=== PATIENT | male | born 1965 | race Caucasian/White ===

== ENCOUNTER → 2018-05-13 07:54 | Outpatient (CLI) | payer OTHER, SELFPAY ==
[2018-05-13 09:22] LABS: Hemoglobin A1C% w Est Avg Glu 8.5 % (4.0-6.0)
[2018-05-13 09:49] LABS: Creatinine Urine Random 77.9 mg/dL; Protein (Total) Urine Random 134 mg/dL (0-12); Protein Creatinine Ratio Urine 1.72 GRAM/24H
[2018-05-13 09:50] LABS: BUN Creatinine Ratio 19.5 (6-22); Blood Urea Nitrogen 41 mg/dL (9-20); Calcium 8.7 mg/dL (8.4-10.2); Carbon Dioxide 27 mmol/L (22-32); Chloride 106 mmol/L (98-107); Estimated Glomerular Filt Rate 33.5 mL/min (>60); Glucose 165 mg/dL (70-100); HEMOLYSIS < 15 (0-50); Potassium 4.7 mmol/L (3.4-5.1); Sodium 142 mmol/L (137-145)
[2018-05-14 14:52] LABS: Parathyroid Hormone Int 120 pg/mL (14-64)
== END ==
PROVIDERS: PCP Internal Medicine; Visit Provider Student in an Organized Health Care Education/Training Program
DX: N05.9 Unspecified nephritic syndrome with unspecified morphologic changes (principal); E11.9 Type 2 diabetes mellitus without complications; N25.81 Secondary hyperparathyroidism of renal origin; R80.9 Proteinuria, unspecified
CPT/HCPCS: 36415; 80048; 82570; 83036; 83970; 84156

== ENCOUNTER → 2018-10-22 12:33 | Outpatient (CLI) | payer OTHER, SELFPAY ==
[2018-10-22 12:57] LABS: Hematocrit 41.1 % (41-53); Hemoglobin 13.5 g/dL (13.5-17.5)
[2018-10-22 14:02] LABS: BUN Creatinine Ratio 25.9 (6-22); Blood Urea Nitrogen 57 mg/dL (9-20); Calcium 8.5 mg/dL (8.4-10.2); Carbon Dioxide 22 mmol/L (22-32); Chloride 105 mmol/L (98-107); Estimated Glomerular Filt Rate 31.7 mL/min (>60); Glucose 200 mg/dL (70-100); HEMOLYSIS < 15 (0-50); Potassium 5.2 mmol/L (3.4-5.1); Sodium 137 mmol/L (137-145)
[2018-10-22 15:24] LABS: Creatinine Urine Random 76.3 mg/dL; Protein (Total) Urine Random 123 mg/dL (0-12); Protein Creatinine Ratio Urine 1.61 GRAM/24H
[2018-10-26 15:00] LABS: Parathyroid Hormone Int 151 pg/mL (14-64)
== END ==
PROVIDERS: Family Provider Internal Medicine; PCP Internal Medicine; Visit Provider Student in an Organized Health Care Education/Training Program
DX: N05.9 Unspecified nephritic syndrome with unspecified morphologic changes (principal); D64.9 Anemia, unspecified; N25.81 Secondary hyperparathyroidism of renal origin; R80.9 Proteinuria, unspecified
CPT/HCPCS: 36415; 80048; 82570; 83970; 84156; 85014; 85018

== ENCOUNTER → 2018-11-09 12:09 | Outpatient (CLI) | payer OTHER, SELFPAY ==
[2018-11-09 13:11] LABS: HEMOLYSIS < 15 (0-50); Potassium 4.6 mmol/L (3.4-5.1)
== END ==
PROVIDERS: Family Provider Internal Medicine; PCP Internal Medicine; Visit Provider Student in an Organized Health Care Education/Training Program
DX: E87.5 Hyperkalemia (principal)
CPT/HCPCS: 36415; 84132

== ENCOUNTER → 2018-12-04 11:08 | Outpatient (CLI) | payer OTHER, SELFPAY | PROVIDERS: Family Provider Internal Medicine; PCP Internal Medicine; Visit Provider Student in an Organized Health Care Education/Training Program | DX: E87.5 Hyperkalemia (principal) ==

== ENCOUNTER → 2019-02-05 08:53 | Outpatient (CLI) | payer OTHER, SELFPAY ==
[2019-02-05 10:25] LABS: BUN Creatinine Ratio 22.4 (6-22); Blood Urea Nitrogen 47 mg/dL (9-20); Calcium 9.1 mg/dL (8.4-10.2); Carbon Dioxide 25 mmol/L (22-32); Chloride 104 mmol/L (98-107); Estimated Glomerular Filt Rate 33.3 mL/min (>60); Glucose 187 mg/dL (70-100); HEMOLYSIS < 15 (0-50); Sodium 136 mmol/L (137-145)
[2019-02-05 10:26] LABS: Creatinine Urine Random 64.6 mg/dL; Potassium 5.4 mmol/L (3.4-5.1); Protein (Total) Urine Random 110 mg/dL (0-12)
== END ==
PROVIDERS: PCP Internal Medicine; Visit Provider Student in an Organized Health Care Education/Training Program
DX: R80.9 Proteinuria, unspecified (principal); N05.9 Unspecified nephritic syndrome with unspecified morphologic changes
CPT/HCPCS: 36415; 80048; 82570; 84156

== ENCOUNTER → 2019-02-09 11:20 | Outpatient (CLI) | payer OTHER, SELFPAY ==
[2019-02-09 12:21] LABS: HEMOLYSIS < 15 (0-50)
[2019-02-09 12:29] LABS: Potassium 5.5 mmol/L (3.4-5.1)
== END ==
PROVIDERS: PCP Internal Medicine; Visit Provider Student in an Organized Health Care Education/Training Program
DX: E87.5 Hyperkalemia (principal)
CPT/HCPCS: 36415; 84132

== ENCOUNTER → 2019-06-18 11:24 | Outpatient (CLI) | payer OTHER, SELFPAY ==
[2019-06-18 12:18] LABS: Hematocrit 41.4 % (41-53); Hemoglobin 13.5 g/dL (13.5-17.5)
[2019-06-18 12:31] LABS: BUN Creatinine Ratio 23.2 (6-22); Blood Urea Nitrogen 44 mg/dL (9-20); Calcium 8.9 mg/dL (8.4-10.2); Carbon Dioxide 25 mmol/L (22-32); Chloride 105 mmol/L (98-107); Estimated Glomerular Filt Rate 37.4 mL/min (>60); Glucose 169 mg/dL (70-100); HEMOLYSIS < 15 (0-50); Potassium 4.7 mmol/L (3.4-5.1); Sodium 141 mmol/L (137-145)
[2019-06-18 12:37] LABS: Creatinine Urine Random 72.2 mg/dL; Protein (Total) Urine Random 194 mg/dL (0-12); Protein Creatinine Ratio Urine 2.68 GRAM/24H
[2019-06-21 14:22] LABS: Parathyroid Hormone Int 81 pg/mL (14-64)
== END ==
PROVIDERS: Family Provider Internal Medicine; PCP Internal Medicine; Visit Provider Student in an Organized Health Care Education/Training Program
DX: N05.9 Unspecified nephritic syndrome with unspecified morphologic changes (principal); D64.9 Anemia, unspecified; N25.81 Secondary hyperparathyroidism of renal origin; R80.9 Proteinuria, unspecified
CPT/HCPCS: 36415; 80048; 82570; 83970; 84156; 85014; 85018

== ENCOUNTER → 2019-10-24 19:31 | Outpatient (ROUT) | payer OTHER, SELFPAY | PROVIDERS: Family Provider Internal Medicine; PCP Internal Medicine; Visit Provider Dermatology | DX: N05.9 Unspecified nephritic syndrome with unspecified morphologic changes (principal); D64.9 Anemia, unspecified; N25.81 Secondary hyperparathyroidism of renal origin; R80.9 Proteinuria, unspecified | CPT/HCPCS: 87070; 87075; 87077; 87186; 87205 ==

== ENCOUNTER → 2019-11-26 08:38 | Outpatient (CLI) | payer OTHER, SELFPAY ==
[2019-11-26 09:07] LABS: Hematocrit 43.9 % (41-53); Hemoglobin 14.4 g/dL (13.5-17.5)
[2019-11-26 09:36] LABS: Creatinine Urine Random 61.9 mg/dL; Protein (Total) Urine Random 144 mg/dL (0-12); Protein Creatinine Ratio Urine 2.32 GRAM/24H
[2019-11-26 09:44] LABS: BUN Creatinine Ratio 21.9 (6-22); Blood Urea Nitrogen 51 mg/dL (9-20); Calcium 9.5 mg/dL (8.4-10.2); Carbon Dioxide 26 mmol/L (22-32); Chloride 105 mmol/L (98-107); Cholesterol 247 mg/dL (140-199); Estimated Glomerular Filt Rate 29.4 mL/min (>60); Glucose 147 mg/dL (70-100); HDL Cholesterol 52 mg/dL (40-60); HEMOLYSIS < 15 (0-50); LDL Cholesterol Calculated 179 mg/dL (<100); Sodium 138 mmol/L (137-145); Triglycerides 81 mg/dL (35-150)
[2019-11-26 09:46] LABS: Potassium 5.4 mmol/L (3.4-5.1)
[2019-11-29 08:35] LABS: Parathyroid Hormone Int 86 pg/mL (15-65)
== END ==
PROVIDERS: Family Provider Internal Medicine; PCP Internal Medicine; Referring Provider Student in an Organized Health Care Education/Training Program; Visit Provider Student in an Organized Health Care Education/Training Program
DX: D64.9 Anemia, unspecified (principal); N25.81 Secondary hyperparathyroidism of renal origin; R80.9 Proteinuria, unspecified
CPT/HCPCS: 36415; 80048; 80061; 82570; 83970; 84156; 85014; 85018

== ENCOUNTER → 2020-01-02 07:52 | Outpatient (CLI) | payer OTHER, SELFPAY ==
[2020-01-02 10:02] LABS: Blood Urea Nitrogen 39 mg/dL (9-20); Calcium 9.1 mg/dL (8.4-10.2); Carbon Dioxide 23 mmol/L (22-32); Chloride 107 mmol/L (98-107); Estimated Glomerular Filt Rate 27.9 mL/min (>60); Glucose 168 mg/dL (70-100); HEMOLYSIS < 15 (0-50); Sodium 136 mmol/L (137-145)
[2020-01-02 10:12] LABS: Potassium 5.4 mmol/L (3.4-5.1)
== END ==
PROVIDERS: Family Provider Internal Medicine; PCP Internal Medicine; Referring Provider Student in an Organized Health Care Education/Training Program; Visit Provider Student in an Organized Health Care Education/Training Program
DX: N05.9 Unspecified nephritic syndrome with unspecified morphologic changes (principal)
CPT/HCPCS: 36415; 80048

== ENCOUNTER → 2020-01-21 12:22 | Outpatient (CLI) | payer OTHER, SELFPAY ==
[2020-01-21 12:59] LABS: BUN Creatinine Ratio 24.8 (6-22); Blood Urea Nitrogen 66 mg/dL (9-20); Calcium 9.1 mg/dL (8.4-10.2); Carbon Dioxide 25 mmol/L (22-32); Chloride 105 mmol/L (98-107); Estimated Glomerular Filt Rate 25.3 mL/min (>60); Glucose 134 mg/dL (70-100); HEMOLYSIS < 15 (0-50); Potassium 5.1 mmol/L (3.4-5.1); Sodium 137 mmol/L (137-145)
[2020-01-21 13:20] LABS: Creatinine Urine Random 99.1 mg/dL; Protein (Total) Urine Random 95 mg/dL (0-12); Protein Creatinine Ratio Urine 0.95 GRAM/24H
== END ==
PROVIDERS: Family Provider Internal Medicine; PCP Internal Medicine; Referring Provider Student in an Organized Health Care Education/Training Program; Visit Provider Student in an Organized Health Care Education/Training Program
DX: N05.9 Unspecified nephritic syndrome with unspecified morphologic changes (principal); R80.9 Proteinuria, unspecified
CPT/HCPCS: 36415; 80048; 82570; 84156

== ENCOUNTER → 2020-07-09 11:51 | Outpatient (CLI) | payer OTHER, SELFPAY ==
[2020-07-09 12:26] LABS: Hematocrit 42.3 % (41-53); Hemoglobin 13.7 g/dL (13.5-17.5)
[2020-07-09 12:52] LABS: BUN Creatinine Ratio 16.6 (6-22); Blood Urea Nitrogen 36 mg/dL (9-20); Calcium 8.4 mg/dL (8.4-10.2); Carbon Dioxide 27 mmol/L (22-32); Chloride 105 mmol/L (98-107); Glucose 173 mg/dL (70-100); HEMOLYSIS < 15 (0-50); Potassium 4.7 mmol/L (3.4-5.1); Sodium 136 mmol/L (137-145)
[2020-07-09 13:46] LABS: Creatinine Urine Random 19.4 mg/dL; Protein (Total) Urine Random 38 mg/dL (0-12); Protein Creatinine Ratio Urine 1.95 GRAM/24H
[2020-07-10 07:29] LABS: Parathyroid Hormone Int 110 pg/mL (15-65)
== END ==
PROVIDERS: Family Provider Internal Medicine; PCP Internal Medicine; Referring Provider Student in an Organized Health Care Education/Training Program; Visit Provider Student in an Organized Health Care Education/Training Program
DX: N05.9 Unspecified nephritic syndrome with unspecified morphologic changes (principal); D64.9 Anemia, unspecified; N25.81 Secondary hyperparathyroidism of renal origin; R80.9 Proteinuria, unspecified
CPT/HCPCS: 36415; 80048; 82570; 83970; 84156; 85014; 85018

== ENCOUNTER → 2020-08-02 10:34 | Outpatient (CLI) | payer OTHER, SELFPAY ==
[2020-08-02 11:21] LABS: COVID19 -Nasal RAPID Negative (Negative)
--- NOTE | 2020-08-03 18:36 | DI.NM.S_ITS ---
DATE OF SERVICE: 08/02/2020 PROCEDURE PERFORMED: Exercise treadmill stress and rest myocardial perfusion imaging with gating to assess ejection fraction and regional wall motion. ORDERING PROVIDER: Dr. Jorge Sands. INDICATIONS: The patient is a 54-year-old obese diabetic male with chest pain. EXERCISE TREADMILL TESTING: The patient was able to exercise for a total of 6 minutes 19 seconds on a standard Alireza protocol suggesting moderately impaired exercise capacity with an LATHA of +33%. He had a normal heart rate and blood pressure response, achieving a maximum heart rate of 156 BPM (93% of his predicted maximum). He had no chest discomfort but had limiting dyspnea. His resting ECG is normal. With exercise, there is significant motion artifact, but 1-2 mm of flat to upsloping ST depression in the inferolateral leads, that becomes predominantly upsloping early in recovery and is nonspecific for ischemia. There are occasional PACs, but no concerning arrhythmias. At 5 minutes 20 seconds of exercise, at a heart rate of 147 BPM, 25.4 millicuries of technetium-99m Myoview was injected and the patient was imaged 20 minutes later using a gated SPECT acquisition protocol. He returned the following day and was reinjected with an additional 25.4 millicuries of technetium-99m Myoview and was imaged 30 minutes later, again using a gated SPECT acquisition protocol. FINDINGS: 1. Raw data: There is marginal image quality with considerable motion artifact noted on the post-stress images that appears to be fairly well corrected using a motion correction algorithm, although this itself can introduce artifact . The lung/heart ratio was normal at 0.28 with a borderline elevated TID ratio of 1.21. 2. Quantitated gated SPECT: Post-stress ejection fraction is estimated at 66% without any obvious focal wall motion abnormality, although image quality is quite poor, particularly at the apex. Resting ejection fraction is estimated at 71% with a normal end-diastolic volume of 95 mL. 3. The post-stress supine images shows a moderate to severe perfusion defect in the mid to distal septum, extending into the distal anterior wall, apex and distal inferior wall. The prone images are of suboptimal quality, but suggest a persistent perfusion defect in this area, concerning for true perfusion defect. The resting images are of much better quality and show resolution of this distal anteroapical and distal inferior wall perfusion defect. IMPRESSION: 1. Probable abnormal myocardial perfusion study. 2. Moderate-sized, reversible perfusion defect involving the mid to distal septum, distal anterior wall, apex, and distal inferior wall concerning for myocardial ischemia, although image quality is somewhat suboptimal with considerable motion artifact noted, reducing the specificity. 3. Normal left ventricular systolic function without any obvious focal wall motion abnormality, although image quality again is somewhat suboptimal. 4. Moderate-severely reduced exercise capacity without angina, but limiting dyspnea with some flat upsloping ST depression that is nonspecific for ischemia. 5. Compared to the previous myocardial perfusion study of 08/20/2012, the patient had an LATHA of approximately +10% previously, suggesting worsening exercise capacity. His ejection fraction appears to be similar. His perfusion imaging was normal previously, suggesting that this anterior apical perfusion defect is new compared to the previous exam. Claudio Man - Keshawn/lexis doc#: [id number]/job#: [id number] dd: 08/03/2020 12:57:00 dt: 08/03/2020 17:45:00 DICTATING MD/COPIES TO: Camden Russell MD; Jorge Sands MD COPIES MNE: SAAD;
== END ==
PROVIDERS: Family Provider Internal Medicine; PCP Internal Medicine; Referring Provider Internal Medicine; Visit Provider Internal Medicine
DX: R07.9 Chest pain, unspecified (principal); E66.9 Obesity, unspecified; E11.9 Type 2 diabetes mellitus without complications; I10 Essential (primary) hypertension
CPT/HCPCS: 78452; 87635; 93017; A9502

== ENCOUNTER → 2020-08-21 08:44 | Outpatient (CLI) | payer OTHER, SELFPAY ==
[2020-08-21 09:35] LABS: BUN Creatinine Ratio 16.9 (6-22); Blood Urea Nitrogen 34 mg/dL (9-20); Calcium 9.3 mg/dL (8.4-10.2); Carbon Dioxide 27 mmol/L (22-32); Chloride 104 mmol/L (98-107); Estimated Glomerular Filt Rate 34.9 mL/min (>60); Glucose 160 mg/dL (70-100); HEMOLYSIS < 15 (0-50); Sodium 135 mmol/L (137-145)
[2020-08-21 14:42] LABS: Creatinine Urine Random 46.1 mg/dL; Protein (Total) Urine Random 59 mg/dL (0-12); Protein Creatinine Ratio Urine 1.27 GRAM/24H
== END ==
PROVIDERS: Family Provider Internal Medicine; PCP Internal Medicine; Referring Provider Student in an Organized Health Care Education/Training Program; Visit Provider Student in an Organized Health Care Education/Training Program
DX: R80.9 Proteinuria, unspecified (principal); N05.9 Unspecified nephritic syndrome with unspecified morphologic changes
CPT/HCPCS: 36415; 80048; 82570; 84156

== ENCOUNTER → 2020-11-27 16:13 | Outpatient (CLI) | payer OTHER, SELFPAY ==
--- NOTE | 2020-11-27 | DI.ECHO.S_ITS ---
[facility]---------+ [facility] +---------+ : : [address] : : : : [id number] : : : : Phone: [phone]+ Echocardiogram Report + + :Name: TARA DRAPER Study Date: 11/27/2020 Height: 72 in : :[facility] ReadingLocation: Weight: 289 lb : : Gender: Male BSA: 2.5 m2 : :: 1965 Age: 55 yrs BP: 152/86 mmHg: :Reason For Study: ANGINA PECTORIS : :Ordering Physician: NEGIN, : :WENDY Performed By: Nishi Shea : :Referring: WENDY RUIZ : + + Interpretation Summary 1) Normal left ventricular thickness, size, wall motion, and systolic function (EF 60-65%). 2) Normal right ventricular size and function. 3) No significant valvular abnormalities. 4) Hypertension present during the study (BP 152/86mmHg). 5) No prior Echo available for comparison. Procedure: A two-dimensional transthoracic echocardiogram with color flow and Doppler was performed. The study quality was technically adequate. There is no prior echocardiogram noted for this patient. A contrast injection of Definity was performed to improve assessment of LV function. The patient was in sinus rhythm with heart rates between 75-84 bpm during the exam. Left Ventricle: The left ventricle is normal in size and wall thickness. The ejection fraction is estimated to be 65-70%. Left ventricular systolic function appears normal without focal wall motion abnormalities. Diastolic parameters suggest probable normal left ventricular diastolic function and normal filling pressures. Right Ventricle: The right ventricle is normal in size and function. Atria: The left atrial size is normal. Right atrial size is normal. There is no Doppler evidence for an interatrial shunt. Mitral Valve: There is mild mitral annular calcification. The mitral valve leaflets appear mildly thickened, but open well. There is no mitral regurgitation noted. Aortic Valve: The aortic valve is trileaflet. The aortic valve opens well. There is no aortic valve stenosis. No aortic regurgitation is present. Tricuspid Valve: The tricuspid valve is normal in structure and function. There is trace tricuspid regurgitation. Pulmonary artery pressures cannot be estimated because of the lack of a measurable TR jet velocity but the IVC suggests a CVP of around 3 mmHg. Pulmonic Valve: The pulmonic valve leaflets are thin and pliable; valve motion is normal. There is no pulmonic valvular regurgitation. Great Vessels: The aortic root is normal size. The dimensions of the ascending aorta are normal. The IVC is of normal diameter and collapses greater than 50% with a sniff. This suggests a low right atrial pressure of 3 mm Hg. Pericardium/ Pleura There is no pericardial effusion. There is no pleural effusion. MMode/2D Measurements & Calculations LVIDd: 4.6 cm LVOT diam: 2.2 cm LVIDs: 3.0 cm Ao root diam: 3.2 cm FS: 34.6 % asc Aorta Diam: 3.3 cm IVSd: 1.4 cm Ao Arch Diam (Prox Trans): 3.0 cm LVPWd: 0.94 cm LV sow. diameter/BSA (cm/m^2): 1.8 LV sys. diameter/BSA (cm/m^2): 1.2 LA A2 area: 19.7 cm2 RA long axis: 4.8 cm LA A4 area: 19.6 cm2 RA area: 13.7 cm2 LA length (vol): 5.5 cm RA vol: 33.4 ml LA vol: 59.4 ml RA : 13.4 ml/m2 LA vol index: 23.8 ml/m2 IVC diam: 1.3 cm RVD1 (basal): 2.8 cm TAPSE: 2.0 cm Doppler Measurements & Calculations Ao V2 max: 149.3 cm/sec LVOT Max Miguel: 85.0 cm/sec Ao V2 mean: 110.6 cm/sec LV V1 max P.9 mmHg Ao max P.9 mmHg LV V1 VTI: 18.3 cm Ao mean P.4 mmHg VIDHI(I,D): 2.5 cm2 Ao V2 VTI: 27.8 cm VIDHI(V,D): 2.2 cm2 sev ratio: 0.66 VIDHI indexed to BSA (cm^2/m^2): 1.0 MV E max miguel: 55.1 cm/sec PA V2 max: 84.9 cm/sec Med Peak E' Miguel: 9.2 cm/sec PA V2 mean: 58.3 cm/sec E/E' med: 6.0 PA mean P.5 mmHg Lat Peak E' Miguel: 6.8 cm/sec PA pr(Accel): 37.9 mmHg E/E' lat: 8.1 E/e' average: 7.0 MV dec time: 0.27 sec SVLVOT): 69.4 ml Reading Physician:05:46 PM
== END ==
PROVIDERS: Family Provider Internal Medicine; PCP Internal Medicine; Referring Provider Internal Medicine Cardiovascular Disease; Visit Provider Internal Medicine Cardiovascular Disease
DX: I20.8 Other forms of angina pectoris (principal); R94.39 Abnormal result of other cardiovascular function study
CPT/HCPCS: 93306; Q9957

== ENCOUNTER → 2020-12-04 17:38 | Outpatient (CLI) | payer OTHER, SELFPAY ==
[2020-12-04 18:18] LABS: BUN Creatinine Ratio 21.5 (6-22); Blood Urea Nitrogen 41 mg/dL (9-20); Carbon Dioxide 24 mmol/L (22-32); Chloride 106 mmol/L (98-107); Estimated Glomerular Filt Rate 36.9 mL/min (>60); Glucose 82 mg/dL (70-100); HEMOLYSIS < 15 (0-50); Potassium 4.6 mmol/L (3.4-5.1); Sodium 139 mmol/L (137-145)
[2020-12-04 18:36] LABS: Creatinine Urine Random 55.5 mg/dL; Protein (Total) Urine Random 55 mg/dL (0-12); Protein Creatinine Ratio Urine 0.99 GRAM/24H
[2020-12-05 07:29] LABS: Parathyroid Hormone Int 131 pg/mL (15-65)
== END ==
PROVIDERS: Family Provider Internal Medicine; PCP Internal Medicine; Referring Provider Student in an Organized Health Care Education/Training Program; Visit Provider Student in an Organized Health Care Education/Training Program
DX: N05.9 Unspecified nephritic syndrome with unspecified morphologic changes (principal); N25.81 Secondary hyperparathyroidism of renal origin; R80.9 Proteinuria, unspecified
CPT/HCPCS: 36415; 80048; 82570; 83970; 84156

== ENCOUNTER → 2021-01-14 12:48 | Outpatient (CLI) | payer OTHER, SELFPAY ==
[2021-01-14 13:28] LABS: Add Manual Diff / Slide Review NO; Basophils Absolute Auto 0 /uL (0-100); Basophils Percent Auto 0.7 % (0-2); Eosinophils Absolute Auto 200 /uL (0-450); Eosinophils Percent Auto 2.6 % (2-4); Hematocrit 40.5 % (41-53); Hemoglobin 13.5 g/dL (13.5-17.5); Lymphocytes Absolute Auto 2200 /uL (1100-4500); Lymphocytes Percent Auto 36.1 % (25-40); Mean Corpuscular HGB Conc 33.3 % (30-36); Mean Corpuscular Hemoglobin 28.6 PG (26-34); Mean Corpuscular Volume 86.1 fL (80-100); Monocytes Absolute Auto 500 /uL (0-900); Monocytes Percent Auto 8.3 % (3-14); Neutrophils Absolute Auto 3200 /uL (1500-7000); Neutrophils Percent Auto 52.3 % (50-75); Platelet Count 196 X10^3/uL (150-400); White Blood Cell Count 6.2 X10^3/uL (4.5-11.0)
[2021-01-14 14:17] LABS: BUN Creatinine Ratio 15.6 (6-22); Blood Urea Nitrogen 31 mg/dL (9-20); Calcium 9.5 mg/dL (8.4-10.2); Carbon Dioxide 25 mmol/L (22-32); Chloride 105 mmol/L (98-107); Cholesterol 194 mg/dL (140-199); Estimated Glomerular Filt Rate 35.2 mL/min (>60); Glucose 161 mg/dL (70-100); HDL Cholesterol 49 mg/dL (40-60); HEMOLYSIS < 15 (0-50); LDL Cholesterol Calculated 115 mg/dL (<100); Potassium 4.8 mmol/L (3.4-5.1); Sodium 137 mmol/L (137-145); Triglycerides 151 mg/dL (35-150)
== END ==
PROVIDERS: Family Provider Internal Medicine; PCP Internal Medicine; Referring Provider Internal Medicine Cardiovascular Disease; Visit Provider Internal Medicine Cardiovascular Disease
DX: I10 Essential (primary) hypertension (principal); E78.5 Hyperlipidemia, unspecified
CPT/HCPCS: 36415; 80048; 80061; 85025

== ENCOUNTER → 2021-04-16 08:31 | Outpatient (CLI) | payer OTHER, SELFPAY ==
[2021-04-16 09:19] LABS: Hematocrit 39.5 % (41-53); Hemoglobin 13.1 g/dL (13.5-17.5)
[2021-04-16 09:30] LABS: Blood Urea Nitrogen 24 mg/dL (9-20); Calcium 8.7 mg/dL (8.4-10.2); Carbon Dioxide 24 mmol/L (22-32); Chloride 111 mmol/L (98-107); Cholesterol 151 mg/dL (140-199); Estimated Glomerular Filt Rate 38.3 mL/min (>60); Glucose 165 mg/dL (70-100); HDL Cholesterol 47 mg/dL (40-60); HEMOLYSIS < 15 (0-50); LDL Cholesterol Calculated 90 mg/dL (<100); Potassium 4.2 mmol/L (3.4-5.1); Sodium 141 mmol/L (137-145); Triglycerides 72 mg/dL (35-150)
[2021-04-16 09:59] LABS: Creatinine Urine Random 123.8 mg/dL
[2021-04-16 10:06] LABS: Protein (Total) Urine Random 110 mg/dL (0-12); Protein Creatinine Ratio Urine 0.88 GRAM/24H
[2021-04-17 07:44] LABS: Parathyroid Hormone Int 119 pg/mL (15-65)
== END ==
PROVIDERS: Family Provider Internal Medicine; PCP Internal Medicine; Referring Provider Student in an Organized Health Care Education/Training Program; Visit Provider Student in an Organized Health Care Education/Training Program
DX: D64.9 Anemia, unspecified (principal); N05.9 Unspecified nephritic syndrome with unspecified morphologic changes; E78.5 Hyperlipidemia, unspecified; N25.81 Secondary hyperparathyroidism of renal origin; R80.9 Proteinuria, unspecified
CPT/HCPCS: 36415; 80048; 80061; 82570; 83970; 84156; 85014; 85018

== ENCOUNTER → 2021-11-11 07:10 | Outpatient (CLI) | payer OTHER, SELFPAY ==
[2021-11-11 08:26] LABS: Hematocrit 42.3 % (41-53)
[2021-11-11 08:34] LABS: BUN Creatinine Ratio 17.6 (6-22); Blood Urea Nitrogen 32 mg/dL (9-20); Calcium 9.1 mg/dL (8.4-10.2); Carbon Dioxide 28 mmol/L (22-32); Chloride 106 mmol/L (98-107); Estimated Glomerular Filt Rate 38.9 mL/min (>60); Glucose 177 mg/dL (70-100); HEMOLYSIS < 15 (0-50); Potassium 4.5 mmol/L (3.4-5.1); Sodium 137 mmol/L (137-145)
[2021-11-11 09:10] LABS: Protein (Total) Urine Random 259 mg/dL (0-12); Protein Creatinine Ratio Urine 4.11 GRAM/24H
[2021-11-12 07:13] LABS: Parathyroid Hormone Int 74 pg/mL (15-65)
== END ==
PROVIDERS: Family Provider Internal Medicine; PCP Internal Medicine; Referring Provider Student in an Organized Health Care Education/Training Program; Visit Provider Student in an Organized Health Care Education/Training Program
DX: N05.9 Unspecified nephritic syndrome with unspecified morphologic changes (principal); D64.9 Anemia, unspecified; N25.81 Secondary hyperparathyroidism of renal origin; R80.9 Proteinuria, unspecified
CPT/HCPCS: 36415; 80048; 82570; 83970; 84156; 85014; 85018

== ENCOUNTER → 2022-02-11 07:11 | Outpatient (CLI) | payer OTHER, SELFPAY ==
[2022-02-11 08:15] LABS: Creatinine Urine Random 78.8 mg/dL; Protein (Total) Urine Random 159 mg/dL (0-12); Protein Creatinine Ratio Urine 2.01 GRAM/24H
[2022-02-11 08:33] LABS: BUN Creatinine Ratio 22.7 (6-22); Blood Urea Nitrogen 58 mg/dL (9-20); Calcium 8.9 mg/dL (8.4-10.2); Carbon Dioxide 22 mmol/L (22-32); Chloride 107 mmol/L (98-107); Estimated Glomerular Filt Rate 29 mL/min (>60); Glucose 191 mg/dL (70-100); HEMOLYSIS < 15 (0-50); Sodium 136 mmol/L (137-145)
[2022-02-11 08:36] LABS: Potassium 5.6 mmol/L (3.4-5.1)
== END ==
PROVIDERS: Family Provider Internal Medicine; PCP Internal Medicine; Referring Provider Student in an Organized Health Care Education/Training Program; Visit Provider Student in an Organized Health Care Education/Training Program
DX: N05.9 Unspecified nephritic syndrome with unspecified morphologic changes (principal); R80.9 Proteinuria, unspecified
CPT/HCPCS: 36415; 80048; 82570; 84156

== ENCOUNTER → 2022-04-16 16:28 | Outpatient (CLI) | payer OTHER, SELFPAY ==
[2022-04-16 18:12] LABS: Hematocrit 42.6 % (41-53); Hemoglobin 14.2 g/dL (13.5-17.5)
[2022-04-16 18:32] LABS: Blood Urea Nitrogen 43 mg/dL (9-20); Calcium 8.6 mg/dL (8.4-10.2); Carbon Dioxide 25 mmol/L (22-32); Chloride 105 mmol/L (98-107); Estimated Glomerular Filt Rate 33 mL/min (>60); Glucose 131 mg/dL (70-100); HEMOLYSIS 18 (0-50); Potassium 4.4 mmol/L (3.4-5.1); Sodium 137 mmol/L (137-145)
[2022-04-16 19:55] LABS: Creatinine Urine Random 51.5 mg/dL; Protein (Total) Urine Random 124 mg/dL (0-12)
[2022-04-17 07:39] LABS: Parathyroid Hormone Int 165 pg/mL (15-65)
== END ==
PROVIDERS: Family Provider Internal Medicine; PCP Internal Medicine; Referring Provider Student in an Organized Health Care Education/Training Program; Visit Provider Student in an Organized Health Care Education/Training Program
DX: N05.9 Unspecified nephritic syndrome with unspecified morphologic changes (principal); D64.9 Anemia, unspecified; N25.81 Secondary hyperparathyroidism of renal origin; R80.9 Proteinuria, unspecified
CPT/HCPCS: 36415; 80048; 82570; 83970; 84156; 85014; 85018

== ENCOUNTER → 2022-05-21 10:13 | Outpatient (CLI) | payer OTHER, SELFPAY ==
[2022-05-21 11:10] LABS: Hematocrit 42.4 % (41-53)
[2022-05-21 11:20] LABS: BUN Creatinine Ratio 15.4 (6-22); Blood Urea Nitrogen 37 mg/dL (9-20); Carbon Dioxide 24 mmol/L (22-32); Chloride 109 mmol/L (98-107); Estimated Glomerular Filt Rate 31 mL/min (>60); Glucose 227 mg/dL (70-100); HEMOLYSIS < 15 (0-50); Sodium 136 mmol/L (137-145)
[2022-05-21 11:33] LABS: Potassium 5.5 mmol/L (3.4-5.1)
[2022-05-21 11:33] LABS: Protein (Total) Urine Random 245 mg/dL (0-12); Protein Creatinine Ratio Urine 2.98 GRAM/24H
[2022-05-22 05:30] LABS: Parathyroid Hormone Int 118 pg/mL (15-65)
== END ==
PROVIDERS: Family Provider Internal Medicine; PCP Internal Medicine; Referring Provider Student in an Organized Health Care Education/Training Program; Visit Provider Student in an Organized Health Care Education/Training Program
DX: N05.9 Unspecified nephritic syndrome with unspecified morphologic changes (principal); D64.9 Anemia, unspecified; N25.81 Secondary hyperparathyroidism of renal origin; R80.9 Proteinuria, unspecified
CPT/HCPCS: 36415; 80048; 82570; 83970; 84156; 85014; 85018

== ENCOUNTER → 2022-07-04 08:30 | Outpatient (CLI) | payer OTHER, SELFPAY ==
[2022-07-04 09:29] LABS: Hematocrit 36.3 % (41-53); Hemoglobin 11.9 g/dL (13.5-17.5)
[2022-07-04 09:44] LABS: BUN Creatinine Ratio 16.3 (6-22); Blood Urea Nitrogen 39 mg/dL (9-20); Calcium 8.9 mg/dL (8.4-10.2); Carbon Dioxide 23 mmol/L (22-32); Chloride 105 mmol/L (98-107); Cholesterol 160 mg/dL (140-199); Estimated Glomerular Filt Rate 31 mL/min (>60); Glucose 186 mg/dL (70-100); HDL Cholesterol 40 mg/dL (40-60); HEMOLYSIS < 15 (0-50); LDL Cholesterol Calculated 106 mg/dL (<100); Potassium 4.5 mmol/L (3.4-5.1); Sodium 139 mmol/L (137-145); Triglycerides 68 mg/dL (35-150)
[2022-07-04 11:14] LABS: Creatinine Urine Random 97.5 mg/dL
[2022-07-04 11:36] LABS: Protein (Total) Urine Random 268 mg/dL (0-12); Protein Creatinine Ratio Urine 2.74 GRAM/24H
[2022-07-06 09:29] LABS: Parathyroid Hormone Int 80 pg/mL (15-65)
== END ==
PROVIDERS: Family Provider Internal Medicine; PCP Internal Medicine; Referring Provider Student in an Organized Health Care Education/Training Program; Visit Provider Student in an Organized Health Care Education/Training Program
DX: E78.5 Hyperlipidemia, unspecified (principal); N05.9 Unspecified nephritic syndrome with unspecified morphologic changes; D64.9 Anemia, unspecified; N25.81 Secondary hyperparathyroidism of renal origin; R80.9 Proteinuria, unspecified
CPT/HCPCS: 36415; 80048; 80061; 82570; 83970; 84156; 85014; 85018

== ENCOUNTER → 2022-08-11 11:08 | Outpatient (CLI) | payer OTHER, SELFPAY ==
[2022-08-11 12:35] LABS: Blood Urea Nitrogen 37 mg/dL (9-20); Calcium 8.8 mg/dL (8.4-10.2); Carbon Dioxide 28 mmol/L (22-32); Chloride 103 mmol/L (98-107); Estimated Glomerular Filt Rate 33 mL/min (>60); Glucose 118 mg/dL (70-100); HEMOLYSIS < 15 (0-50); Potassium 4.5 mmol/L (3.4-5.1); Sodium 138 mmol/L (137-145)
[2022-08-11 15:35] LABS: Creatinine Urine Random 53.7 mg/dL; Protein (Total) Urine Random 185 mg/dL (0-12); Protein Creatinine Ratio Urine 3.44 GRAM/24H
== END ==
PROVIDERS: Family Provider Internal Medicine; PCP Internal Medicine; Referring Provider Student in an Organized Health Care Education/Training Program; Visit Provider Student in an Organized Health Care Education/Training Program
DX: N05.9 Unspecified nephritic syndrome with unspecified morphologic changes (principal); R80.9 Proteinuria, unspecified
CPT/HCPCS: 36415; 80048; 82570; 84156

== ENCOUNTER → 2022-10-20 13:47 | Outpatient (CLI) | payer OTHER, SELFPAY ==
[2022-10-20 14:51] LABS: Add Manual Diff / Slide Review NO; Basophils Absolute Auto 0 /uL (0-100); Basophils Percent Auto 0.7 % (0-2); Eosinophils Absolute Auto 100 /uL (0-450); Eosinophils Percent Auto 2.2 % (2-4); Hematocrit 43.2 % (41-53); Hemoglobin 14.2 g/dL (13.5-17.5); Lymphocytes Absolute Auto 2200 /uL (1100-4500); Lymphocytes Percent Auto 34.5 % (25-40); Mean Corpuscular HGB Conc 32.9 % (30-36); Mean Corpuscular Hemoglobin 27.7 PG (26-34); Mean Corpuscular Volume 84.2 fL (80-100); Monocytes Absolute Auto 600 /uL (0-900); Monocytes Percent Auto 8.9 % (3-14); Neutrophils Absolute Auto 3500 /uL (1500-7000); Neutrophils Percent Auto 53.7 % (50-75); Platelet Count 185 X10^3/uL (150-400); Red Blood Cell Count 5.13 X10^6/uL (4.5-5.9); Red Cell Distribution Width 14.3 % (11.6-14.8); White Blood Cell Count 6.5 X10^3/uL (4.5-11.0)
[2022-10-20 15:24] LABS: Alanine Aminotransferase 15 IU/L (<50); Albumin 3.6 g/dL (3.5-5.0); Albumin Globulin Ratio 1.1 (1.0-2.8); Alkaline Phosphatase 81 U/L (38-126); Aspartate Aminotransferase 18 IU/L (17-59); BUN Creatinine Ratio 19.2 (6-22); Bilirubin Total 0.3 mg/dL (0.2-1.3); Blood Urea Nitrogen 48 mg/dL (9-20); Calcium 9.1 mg/dL (8.4-10.2); Carbon Dioxide 25 mmol/L (22-32); Chloride 103 mmol/L (98-107); Cholesterol 164 mg/dL (140-199); Estimated Glomerular Filt Rate 30 mL/min (>60); Globulin 3.2 g/dL (1.7-4.1); Glucose 117 mg/dL (70-100); HDL Cholesterol 60 mg/dL (40-60); HEMOLYSIS < 15 (0-50); LDL Cholesterol Calculated 89 mg/dL (<100); Potassium 4.4 mmol/L (3.4-5.1); Sodium 139 mmol/L (137-145); Total Protein 6.8 g/dL (6.3-8.2); Triglycerides 77 mg/dL (35-150)
[2022-10-20 16:09] LABS: Creatinine Urine Random 72.1 mg/dL
[2022-10-20 16:24] LABS: Protein (Total) Urine Random 333 mg/dL (0-12); Protein Creatinine Ratio Urine 4.61 GRAM/24H
[2022-10-22 09:36] LABS: Parathyroid Hormone Int 103 pg/mL (15-65)
== END ==
PROVIDERS: Student in an Organized Health Care Education/Training Program; Family Provider Internal Medicine; PCP Internal Medicine; Referring Provider Internal Medicine Cardiovascular Disease; Visit Provider Internal Medicine Cardiovascular Disease
DX: E78.5 Hyperlipidemia, unspecified (principal); Z79.899 Other long term (current) drug therapy; N05.9 Unspecified nephritic syndrome with unspecified morphologic changes; D64.9 Anemia, unspecified; N25.81 Secondary hyperparathyroidism of renal origin; R80.9 Proteinuria, unspecified
CPT/HCPCS: 36415; 80053; 80061; 82570; 83970; 84156; 85025

== ENCOUNTER → 2023-01-08 12:48 | Outpatient (CLI) | payer OTHER, SELFPAY ==
[2023-01-08 13:30] LABS: BUN Creatinine Ratio 19.6 (6-22); Blood Urea Nitrogen 49 mg/dL (9-20); Carbon Dioxide 24 mmol/L (22-32); Chloride 104 mmol/L (98-107); Estimated Glomerular Filt Rate 29 mL/min (>60); Glucose 116 mg/dL (70-100); HEMOLYSIS < 15 (0-50); Sodium 137 mmol/L (137-145)
[2023-01-08 14:33] LABS: Creatinine Urine Random 47.6 mg/dL; Protein (Total) Urine Random 184 mg/dL (0-12); Protein Creatinine Ratio Urine 3.86 GRAM/24H
== END ==
PROVIDERS: Family Provider Internal Medicine; PCP Internal Medicine; Referring Provider Student in an Organized Health Care Education/Training Program; Visit Provider Student in an Organized Health Care Education/Training Program
DX: N05.9 Unspecified nephritic syndrome with unspecified morphologic changes (principal); R80.9 Proteinuria, unspecified
CPT/HCPCS: 36415; 80048; 82570; 84156

== ENCOUNTER → 2023-04-25 08:03 | Outpatient (CLI) | payer OTHER, SELFPAY ==
[2023-04-25 09:07] LABS: Creatinine Urine Random 91.2 mg/dL
[2023-04-25 09:33] LABS: Protein (Total) Urine Random 297 mg/dL (0-12); Protein Creatinine Ratio Urine 3.25 GRAM/24H
[2023-04-25 11:29] LABS: Blood Urea Nitrogen 62 mg/dL (9-20); Calcium 8.8 mg/dL (8.4-10.2); Carbon Dioxide 21 mmol/L (22-32); Chloride 106 mmol/L (98-107); Estimated Glomerular Filt Rate 23 mL/min (>60); Glucose 124 mg/dL (70-100); HEMOLYSIS < 15 (0-50); Potassium 4.2 mmol/L (3.4-5.1); Sodium 138 mmol/L (137-145)
== END ==
PROVIDERS: Family Provider Internal Medicine; PCP Internal Medicine; Referring Provider Student in an Organized Health Care Education/Training Program; Visit Provider Student in an Organized Health Care Education/Training Program
DX: N05.9 Unspecified nephritic syndrome with unspecified morphologic changes (principal); R80.9 Proteinuria, unspecified
CPT/HCPCS: 36415; 80048; 82570; 84156

== ENCOUNTER → 2023-05-09 08:03 | Outpatient (CLI) | payer OTHER, SELFPAY ==
[2023-05-09 09:05] LABS: Hemoglobin A1C% w Est Avg Glu 7.6 % (4.0-6.0)
[2023-05-11 15:23] LABS: HIV 1 & 2 Ab/Ag 4th Gen Combo NEGATIVE (NEGATIVE); Hep C Virus Ab w/Reflex Quant NEGATIVE s/c (NEGATIVE)
[2023-05-13 10:51] LABS: Add Manual Diff / Slide Review NO; Basophils Absolute Auto 0 /uL (0-100); Basophils Percent Auto 0.7 % (0-2); Eosinophils Absolute Auto 100 /uL (0-450); Eosinophils Percent Auto 2.1 % (2-4); Hematocrit 43.9 % (41-53); Hemoglobin 14.4 g/dL (13.5-17.5); Lymphocytes Absolute Auto 1400 /uL (1100-4500); Lymphocytes Percent Auto 26.7 % (25-40); Mean Corpuscular HGB Conc 32.8 % (30-36); Mean Corpuscular Hemoglobin 28.9 PG (26-34); Mean Corpuscular Volume 88.1 fL (80-100); Monocytes Absolute Auto 300 /uL (0-900); Monocytes Percent Auto 5.7 % (3-14); Neutrophils Absolute Auto 3500 /uL (1500-7000); Neutrophils Percent Auto 64.8 % (50-75); Platelet Count 184 X10^3/uL (150-400); Red Blood Cell Count 4.98 X10^6/uL (4.5-5.9); Red Cell Distribution Width 13.9 % (11.6-14.8); White Blood Cell Count 5.4 X10^3/uL (4.5-11.0)
[2023-05-14 10:15] LABS: Alanine Aminotransferase 17 IU/L (<50); Albumin 3.6 g/dL (3.5-5.0); Albumin Globulin Ratio 1.3 (1.0-2.8); Alkaline Phosphatase 72 U/L (38-126); Aspartate Aminotransferase 20 IU/L (17-59); BUN Creatinine Ratio 16.7 (6-22); Bilirubin Total 0.4 mg/dL (0.2-1.3); Blood Urea Nitrogen 45 mg/dL (9-20); Calcium 9.2 mg/dL (8.4-10.2); Carbon Dioxide 24 mmol/L (22-32); Chloride 106 mmol/L (98-107); Cholesterol 177 mg/dL (140-199); Estimated Glomerular Filt Rate 27 mL/min (>60); Globulin 2.8 g/dL (1.7-4.1); Glucose 215 mg/dL (70-100); HDL Cholesterol 54 mg/dL (40-60); HEMOLYSIS < 15 (0-50); LDL Cholesterol Calculated 107 mg/dL (<100); Potassium 5.2 mmol/L (3.4-5.1); Sodium 138 mmol/L (137-145); Total Protein 6.4 g/dL (6.3-8.2); Triglycerides 81 mg/dL (35-150)
[2023-05-14 10:45] LABS: Thyroid Stimulating Hormone 4.38 uIU/mL (0.47-4.68)
== END ==
PROVIDERS: Family Provider Internal Medicine; PCP Physician Assistant; Referring Provider Internal Medicine Cardiovascular Disease; Visit Provider Internal Medicine Cardiovascular Disease
DX: Z79.899 Other long term (current) drug therapy (principal); Z11.4 Encounter for screening for human immunodeficiency virus [HIV]; Z11.59 Encounter for screening for other viral diseases; E10.65 Type 1 diabetes mellitus with hyperglycemia
CPT/HCPCS: 36415; 80053; 80061; 83036; 84443; 85025; 86803; 87389

== ENCOUNTER → 2023-06-01 07:25 | Outpatient (CLI) | payer OTHER, SELFPAY ==
[2023-06-01 08:54] LABS: Hematocrit 40.7 % (41-53); Hemoglobin 13.6 g/dL (13.5-17.5)
[2023-06-01 09:30] LABS: Alanine Aminotransferase 17 IU/L (<50); Albumin 3.5 g/dL (3.5-5.0); Albumin Globulin Ratio 1.3 (1.0-2.8); Alkaline Phosphatase 95 U/L (38-126); Aspartate Aminotransferase 23 IU/L (17-59); BUN Creatinine Ratio 17.6 (6-22); Bilirubin Total 0.3 mg/dL (0.2-1.3); Blood Urea Nitrogen 48 mg/dL (9-20); Carbon Dioxide 24 mmol/L (22-32); Chloride 105 mmol/L (98-107); Estimated Glomerular Filt Rate 26 mL/min (>60); Globulin 2.8 g/dL (1.7-4.1); Glucose 130 mg/dL (70-100); HEMOLYSIS < 15 (0-50); Potassium 4.6 mmol/L (3.4-5.1); Sodium 136 mmol/L (137-145); Total Protein 6.3 g/dL (6.3-8.2)
[2023-06-01 09:39] LABS: Creatinine Urine Random 73.7 mg/dL; Protein (Total) Urine Random 192 mg/dL (0-12)
[2023-06-03 06:36] LABS: Parathyroid Hormone Int 131 pg/mL (15-65)
== END ==
PROVIDERS: Family Provider Internal Medicine; PCP Physician Assistant; Referring Provider Student in an Organized Health Care Education/Training Program; Visit Provider Student in an Organized Health Care Education/Training Program
DX: R80.9 Proteinuria, unspecified (principal); D64.9 Anemia, unspecified; N25.81 Secondary hyperparathyroidism of renal origin
CPT/HCPCS: 36415; 80053; 82570; 83970; 84156; 85014; 85018

== ENCOUNTER → 2023-10-05 07:15 | Outpatient (CLI) | payer OTHER, SELFPAY ==
[2023-10-05 08:19] LABS: Hematocrit 40.9 % (41-53); Hemoglobin 13.6 g/dL (13.5-17.5)
[2023-10-05 08:45] LABS: BUN Creatinine Ratio 14.3 (6-22); Blood Urea Nitrogen 44 mg/dL (9-20); Carbon Dioxide 24 mmol/L (22-32); Chloride 102 mmol/L (98-107); Estimated Glomerular Filt Rate 23 mL/min (>60); Glucose 173 mg/dL (70-100); HEMOLYSIS < 15 (0-50); Potassium 4.7 mmol/L (3.4-5.1); Sodium 134 mmol/L (137-145)
[2023-10-05 09:03] LABS: Creatinine Urine Random 101.2 mg/dL
[2023-10-05 09:07] LABS: Protein (Total) Urine Random 456 mg/dL (0-12)
[2023-10-07 06:36] LABS: Parathyroid Hormone Int 125 pg/mL (15-65)
== END ==
LOC: LAB 07:16
PROVIDERS: Family Provider Internal Medicine; PCP Physician Assistant; Referring Provider Student in an Organized Health Care Education/Training Program; Visit Provider Student in an Organized Health Care Education/Training Program
DX: D70.9 Neutropenia, unspecified (principal); D63.1 Anemia in chronic kidney disease; N25.81 Secondary hyperparathyroidism of renal origin; R80.9 Proteinuria, unspecified
CPT/HCPCS: 36415; 80048; 82570; 83970; 84156; 85014; 85018

== ENCOUNTER → 2023-11-04 10:39 | Outpatient (CLI) | payer OTHER, SELFPAY ==
[2023-11-04 11:34] LABS: Hematocrit 43.9 % (41-53); Hemoglobin 14.5 g/dL (13.5-17.5)
[2023-11-04 11:49] LABS: BUN Creatinine Ratio 14.9 (6-22); Blood Urea Nitrogen 44 mg/dL (9-20); Calcium 9.2 mg/dL (8.4-10.2); Carbon Dioxide 26 mmol/L (22-32); Chloride 102 mmol/L (98-107); Estimated Glomerular Filt Rate 24 mL/min (>60); Glucose 108 mg/dL (70-100); HEMOLYSIS < 15 (0-50); Potassium 4.1 mmol/L (3.4-5.1); Sodium 140 mmol/L (137-145)
[2023-11-04 18:40] LABS: Creatinine Urine Random 68.5 mg/dL
[2023-11-04 18:41] LABS: Protein (Total) Urine Random 437 mg/dL (0-12); Protein Creatinine Ratio Urine 6.37 GRAM/24H
[2023-11-06 10:47] LABS: Parathyroid Hormone Int 116 pg/mL (15-65)
== END ==
LOC: LAB 10:42
PROVIDERS: Family Provider Internal Medicine; PCP Physician Assistant; Referring Provider Student in an Organized Health Care Education/Training Program; Visit Provider Student in an Organized Health Care Education/Training Program
DX: N05.9 Unspecified nephritic syndrome with unspecified morphologic changes (principal); D70.9 Neutropenia, unspecified; D63.1 Anemia in chronic kidney disease; N25.81 Secondary hyperparathyroidism of renal origin; R80.9 Proteinuria, unspecified
CPT/HCPCS: 36415; 80048; 82570; 83970; 84156; 85014; 85018

== ENCOUNTER → 2023-12-12 09:22 | Outpatient (CLI) | payer OTHER, SELFPAY ==
[2023-12-12 10:15] LABS: BUN Creatinine Ratio 19.7 (6-22); Blood Urea Nitrogen 63 mg/dL (9-20); Calcium 9.3 mg/dL (8.4-10.2); Carbon Dioxide 24 mmol/L (22-32); Chloride 108 mmol/L (98-107); Estimated Glomerular Filt Rate 22 mL/min (>60); Glucose 138 mg/dL (70-100); HEMOLYSIS < 15 (0-50); Potassium 4.4 mmol/L (3.4-5.1); Sodium 138 mmol/L (137-145)
[2023-12-12 10:38] LABS: Creatinine Urine Random 77.9 mg/dL
[2023-12-12 10:45] LABS: Protein (Total) Urine Random 309 mg/dL (0-12); Protein Creatinine Ratio Urine 3.96 GRAM/24H
[2023-12-15 10:14] LABS: Parathyroid Hormone Int 120 pg/mL (15-65)
== END ==
LOC: LAB 09:22
PROVIDERS: Family Provider Internal Medicine; PCP Physician Assistant; Referring Provider Student in an Organized Health Care Education/Training Program; Visit Provider Student in an Organized Health Care Education/Training Program
DX: N05.9 Unspecified nephritic syndrome with unspecified morphologic changes (principal); N25.81 Secondary hyperparathyroidism of renal origin; R80.9 Proteinuria, unspecified
CPT/HCPCS: 36415; 80048; 82570; 83970; 84156

== ENCOUNTER → 2024-04-30 08:29 | Outpatient (CLI) | payer OTHER, SELFPAY ==
[2024-04-30 09:25] LABS: Blood Urea Nitrogen 82 mg/dL (9-20); Calcium 9.3 mg/dL (8.4-10.2); Carbon Dioxide 19 mmol/L (22-32); Chloride 106 mmol/L (98-107); Estimated Glomerular Filt Rate 12 mL/min (>60); Glucose 89 mg/dL (70-100); HEMOLYSIS < 15 (0-50); Potassium 4.3 mmol/L (3.4-5.1); Sodium 138 mmol/L (137-145)
[2024-04-30 09:27] LABS: Creatinine Urine Random 74.15 mg/dL; Protein (Total) Urine Random 152 mg/dL (0-12); Protein Creatinine Ratio Urine 2.04 GRAM/24H
[2024-05-03 13:11] LABS: Parathyroid Hormone Int 178 pg/mL (15-65)
== END ==
PROVIDERS: Family Provider Internal Medicine; PCP Family Medicine; Referring Provider Student in an Organized Health Care Education/Training Program; Visit Provider Student in an Organized Health Care Education/Training Program
DX: N05.9 Unspecified nephritic syndrome with unspecified morphologic changes (principal); R80.9 Proteinuria, unspecified; N25.81 Secondary hyperparathyroidism of renal origin
CPT/HCPCS: 36415; 80048; 82570; 83970; 84156

== ENCOUNTER → 2024-06-13 07:28 | Outpatient (CLI) | payer OTHER, SELFPAY ==
[2024-06-13 09:29] LABS: BUN Creatinine Ratio 11.7 (6-22); Blood Urea Nitrogen 61 mg/dL (9-20); Calcium 10.9 mg/dL (8.4-10.2); Carbon Dioxide 21 mmol/L (22-32); Chloride 102 mmol/L (98-107); Estimated Glomerular Filt Rate 12 mL/min (>60); Glucose 120 mg/dL (70-100); HEMOLYSIS < 15 (0-50); Potassium 4.2 mmol/L (3.4-5.1); Sodium 133 mmol/L (137-145)
[2024-06-13 09:42] LABS: Creatinine Urine Random 104.37 mg/dL; Protein (Total) Urine Random 122 mg/dL (0-12); Protein Creatinine Ratio Urine 1.16 GRAM/24H
[2024-06-15 07:37] LABS: Parathyroid Hormone Int 18 pg/mL (15-65)
== END ==
PROVIDERS: Family Provider Internal Medicine; PCP Family Medicine; Referring Provider Student in an Organized Health Care Education/Training Program; Visit Provider Student in an Organized Health Care Education/Training Program
DX: N25.9 Disorder resulting from impaired renal tubular function, unspecified (principal); N25.81 Secondary hyperparathyroidism of renal origin; R80.9 Proteinuria, unspecified
CPT/HCPCS: 36415; 80048; 82570; 83970; 84156

== ENCOUNTER → 2024-07-20 10:31 | Outpatient (CLI) | payer OTHER, SELFPAY ==
[2024-07-20 11:09] LABS: Hematocrit 43.7 % (41-53); Hemoglobin 14.4 g/dL (13.5-17.5)
[2024-07-20 11:21] LABS: BUN Creatinine Ratio 13.5 (6-22); Blood Urea Nitrogen 67 mg/dL (9-20); Calcium 9.2 mg/dL (8.4-10.2); Carbon Dioxide 21 mmol/L (22-32); Chloride 106 mmol/L (98-107); Estimated Glomerular Filt Rate 13 mL/min (>60); Glucose 142 mg/dL (70-100); HEMOLYSIS < 15 (0-50); Potassium 4.6 mmol/L (3.4-5.1); Sodium 136 mmol/L (137-145)
[2024-07-20 11:57] LABS: Creatinine Urine Random 66.36 mg/dL; Protein (Total) Urine Random 103 mg/dL (0-12); Protein Creatinine Ratio Urine 1.55 GRAM/24H
[2024-07-22 07:11] LABS: Parathyroid Hormone Int 224 pg/mL (15-65)
== END ==
PROVIDERS: Family Provider Internal Medicine; PCP Family Medicine; Referring Provider Student in an Organized Health Care Education/Training Program; Visit Provider Student in an Organized Health Care Education/Training Program
DX: N05.9 Unspecified nephritic syndrome with unspecified morphologic changes (principal); D63.1 Anemia in chronic kidney disease; D70.9 Neutropenia, unspecified; R80.9 Proteinuria, unspecified; N25.81 Secondary hyperparathyroidism of renal origin
CPT/HCPCS: 36415; 80048; 82570; 83970; 84156; 85014; 85018

== ENCOUNTER 2024-08-01 09:36 | Emergency (ER) | payer OTHER, SELFPAY ==
[2024-08-01] VITALS (12 sets, daily range): BP systolic 164–251; BP diastolic 73–121; PULSE 64–81; RESP 9–19; O2SAT 98–100; BMI 33.7
--- NOTE | 2024-08-01 09:48 | EKG_ITS ---
[address] [address] Test Date: 2024-08-01 Pat Name: Claudio Dozier Department: Room: Gender: Male Civil Engineering Project Manager: LESLY : 1965 Requested By: Order Number: [id number] Reading MD: Josesito Roa Measurements Intervals Reading Rate: 76 P: 41 [place]: 168 QRS: 33 QRSD: 78 T: 47 QT: 382 QTc: 429 Interpretive Statements Normal sinus rhythm Electronically Signed On 08-03-2024 19:02:49 PST by Josesito Roa
--- NOTE | 2024-08-01 09:52 | DI.RAD.S_ITS ---
PROCEDURE: XR CHEST 1V INDICATIONS: chest pain TECHNIQUE: One view of the chest was acquired. COMPARISON: None. FINDINGS: Surgical changes and devices: Sternotomy. Lungs and pleura: Lungs are clear. No pleural effusions or pneumothorax. Mediastinum: Mediastinal contours appear normal. Heart size is normal. Bones and chest wall: No suspicious bony lesions. Overlying soft tissues appear unremarkable. Healed right rib fractures. IMPRESSION: No acute cardiopulmonary abnormality is seen. Dictated by: Fuad Garcia M.D. on 08/01/2024 at 10:29 Approved by: Fuad Garcia M.D. on 08/01/2024 at 10:29
[2024-08-01 09:59] LABS: Add Manual Diff / Slide Review NO; Basophils Absolute Auto 100 /uL (0-100); Basophils Percent Auto 0.7 % (0-2); Eosinophils Absolute Auto 100 /uL (0-450); Eosinophils Percent Auto 1.7 % (2-4); Hematocrit 47.9 % (41-53); Hemoglobin 15.6 g/dL (13.5-17.5); Lymphocytes Absolute Auto 2200 /uL (1100-4500); Lymphocytes Percent Auto 29.2 % (25-40); Mean Corpuscular HGB Conc 32.5 % (30-36); Mean Corpuscular Hemoglobin 28.9 PG (26-34); Mean Corpuscular Volume 88.7 fL (80-100); Monocytes Absolute Auto 700 /uL (0-900); Monocytes Percent Auto 8.9 % (3-14); Neutrophils Absolute Auto 4500 /uL (1500-7000); Neutrophils Percent Auto 59.5 % (50-75); Platelet Count 211 X10^3/uL (150-400); Red Cell Distribution Width 14.7 % (11.6-14.8); White Blood Cell Count 7.5 X10^3/uL (4.5-11.0)
[2024-08-01 10:02] LABS: INR 0.9 (0.9-1.3); Prothrombin Time 10.7 SECONDS (9.4-12.5)
[2024-08-01 10:05] LABS: PTT Partial Thromboplastin Tim 35 SECONDS (25.1-36.5)
[2024-08-01 10:06] LABS: Alanine Aminotransferase 16 IU/L (<50); Albumin 4.4 g/dL (3.5-5.0); Albumin Globulin Ratio 1.3 (1.0-2.8); Alkaline Phosphatase 69 U/L (38-126); Aspartate Aminotransferase 19 IU/L (17-59); BUN Creatinine Ratio 14.2 (6-22); Bilirubin Total 0.6 mg/dL (0.2-1.3); Blood Urea Nitrogen 65 mg/dL (9-20); Calcium 9.4 mg/dL (8.4-10.2); Carbon Dioxide 22 mmol/L (22-32); Chloride 106 mmol/L (98-107); Creatine Kinase 56 U/L (55-170); Estimated Glomerular Filt Rate 14 mL/min (>60); Globulin 3.5 g/dL (1.7-4.1); Glucose 170 mg/dL (70-100); HEMOLYSIS < 15 (0-50); Lipase 44 U/L (23-300); Magnesium 1.8 mg/dL (1.6-2.3); Potassium 4.5 mmol/L (3.4-5.1); Sodium 138 mmol/L (137-145); Total Protein 7.9 g/dL (6.3-8.2)
--- NOTE | 2024-08-01 10:10 | ED.CHESTPAIN ---
HPI - Chest Pain General Chief Complaint: Chest Pain Stated Complaint: heart issues per pt Time Seen by Provider: 08/01/24 10:09 Source: patient Mode of arrival: Ambulatory Limitations: no limitations History of Present Illness HPI narrative: 58-year-old male history of type 1 diabetes, hypertension, stage 4 kidney disease with prior cardiac bypass on aspirin 81 mg daily who presents with complaint of chest discomfort starting Thursday. Patient describes it as substernal sort of waxing and waning intensity. He notes exercise does not worse than it has been exercising regularly. States it was worse Thursday and Thursday had reached out to his database engineer as he has had some symptoms on and off in the past they thought it was related to his amlodipine in his database engineer stopped the amlodipine and had him change to hydralazine he took that for 1 day felt like it did not help his symptoms stopped it in his only been taking metoprolol since. Patient notes today in a meeting he also has a little numbness and tingling in his right arm and blood pressures continued to be elevated so decided to present to the ED. Patient states no shortness of breath, no diaphoresis. No fevers or chills no cold cough or congestion symptoms. No nausea or vomiting. No new swelling in extremities. He felt a little lightheaded while chasing his grandkids around the other day but no syncopal episodes. Patient states she is currently taking Jardiance contrast extended release, rosuvastatin, aspirin 81 mg daily metoprolol 50 mg nightly and was prescribed hydralazine 50 mg b.i.d. but only took for 1 day prior to that he was on amlodipine. Patient notes his blood pressures were best controlled before when he was on valsartan but states that was stopped secondary to his kidney function. States blood pressure tends to run about 175/95. Has a history of CABG 3 years ago. No known drug allergies. No tobacco, alcohol or recreational drugs. Has a primary care physician is Dr. Wood, cardiology is Dr. Mendez through [facility] in [place] in his database engineer is Dr. Sousa. Related Data Home Medications Medication Instructions Recorded Confirmed insulin aspart U-100 100 unit/mL 20 unit SUBCUT BID 07/16/18 07/16/18 subcutaneous solution (Novolog U-100 Insulin aspart) lisinopril 40 mg tablet 40 mg PO DAILY 07/16/18 07/16/18 Allergies Allergy/AdvReac Type Severity Reaction Status Date / Time No Known Drug Allergies Allergy Unverified 07/16/18 11:10 Review of Systems Review of Systems ROS Unobtainable: All systems reviewed & are unremarkable except as noted in HPI and below Patient History Social History Smoking Status: Never smoker Smoking Status: Never smoker Substance Use Type: does not use Exam Narrative Exam Narrative: GENERAL: Alert and oriented x three, male in mild distress HEENT: Head normocephalic, atraumatic, EOMI, pupils reactive, face symmetric, moist mucous membranes NECK: Supple, full range of motion CARDIOVASCULAR: Regular rate and rhythm without murmurs, rubs or gallops. Healed midline incision consistent with prior CABG. RESPIRATORY: Breath sounds equal bilaterally, no wheezes rales or rhonchi. No tachypnea or accessory muscle use. ABDOMEN: Soft, nontender. Normoactive bowel sounds all 4 quadrants. No guarding or rebound, rigidity, no mass, no pulsatile mass or bruit. : No CVA tenderness EXTREMITIES: Normal range of motion, no clubbing or edema. Neurovascularly intact. NEUROLOGICAL: Cranial nerves II through XII grossly intact. Moving all extremities SKIN: Warm, dry, no petechiae, no rashes or lesions. Initial Vital Signs Initial Vital Signs: Vital Signs Pulse Rate 81 08/01/24 09:46 Respiratory Rate 18 08/01/24 09:46 Blood Pressure 251/121 H 08/01/24 09:46 Pulse Oximetry 99 08/01/24 09:46 Oxygen Delivery Method Room Air 08/01/24 09:46 Course Orders Ordered: ED Orders 08/01/24 09:49 Complete Blood Count AUTO DIFF Stat Comprehensive Metabolic Panel Stat Lipase Stat Magnesium Stat NT-proBNP (BNP-Adult 18+) Stat PTT Partial Thromboplastin Damian Stat Prothrombin Time INR Stat Troponin & CK Cardiac Panel Stat 08/01/24 09:52 XR chest 1V Stat EKG-12 Lead Stat 08/01/24 11:49 Trop I [Troponin I] Stat Discontinued Medications Aspirin (Aspirin 81 Mg Chew Tab) 324 mg PO NOW ONE Stop: 08/01/24 09:53 Last Admin: 08/01/24 10:57 Dose: Not Given Documented By: MPO Nitroglycerin (Nitroglycerin 0.4 Mg Sl Tab) 0.4 mg SL NOW ONE Stop: 08/01/24 10:29 Last Admin: 08/01/24 10:43 Dose: 0.4 mg Documented By: ROB Vital Signs Vital signs: Vital Signs - 8 hr 08/01/24 10:00 08/01/24 10:00 08/01/24 10:30 Pulse Rate 69 69 Respiratory Rate 15 Blood Pressure 210/73 H Pulse Oximetry 99 100 08/01/24 10:30 08/01/24 10:41 08/01/24 10:41 Pulse Rate 67 Respiratory Rate 19 Blood Pressure 193/101 H 185/85 H Pulse Oximetry 100 08/01/24 10:43 08/01/24 11:00 08/01/24 11:00 Pulse Rate 69 66 Respiratory Rate 12 Blood Pressure 185/85 H 170/74 H Pulse Oximetry 98 08/01/24 11:30 08/01/24 11:30 08/01/24 12:00 Pulse Rate 67 66 Respiratory Rate 12 Blood Pressure 164/78 H Pulse Oximetry 100 100 08/01/24 12:01 08/01/24 12:01 08/01/24 12:30 Pulse Rate 66 Respiratory Rate 11 L Blood Pressure 168/75 H 170/77 H Pulse Oximetry 100 08/01/24 12:30 Pulse Rate 64 Respiratory Rate 9 L Blood Pressure Pulse Oximetry 100 MDM - Chest Pain Lab Data 08/01/24 09:49 08/01/24 09:49 Labs: Lab Results 08/01/24 08/01/24 Range/Units 09:49 11:49 WBC 7.5 (4.5-11.0) X10^3/uL RBC 5.40 (4.5-5.9) X10^6/uL Hgb 15.6 (13.5-17.5) g/dL Hct 47.9 (41-53) % MCV 88.7 (80-100) fL MCH 28.9 (26-34) PG MCHC 32.5 (30-36) % RDW 14.7 (11.6-14.8) % Plt Count 211 (150-400) X10^3/uL Neut % (Auto) 59.5 (50-75) % Lymph % (Auto) 29.2 (25-40) % [place] % (Auto) 8.9 (3-14) % Eos % (Auto) 1.7 L (2-4) % Baso % (Auto) 0.7 (0-2) % Neut # (Auto) 4500 (9149-3531) /uL Lymph # (Auto) 2200 (4182-0894) /uL [place] # (Auto) 700 (0-900) /uL Eos # (Auto) 100 (0-450) /uL Baso # (Auto) 100 (0-100) /uL PT 10.7 (9.4-12.5) SECONDS INR 0.9 (0.9-1.3) APTT 35 (25.1-36.5) SECONDS Sodium 138 (137-145) mmol/L Potassium 4.5 (3.4-5.1) mmol/L Chloride 106 (98-107) mmol/L Carbon Dioxide 22 (22-32) mmol/L BUN 65 H (9-20) mg/dL Creatinine 4.57 H (0.66-1.25) mg/dL Estimated GFR 14 L (>60) mL/min BUN/Creatinine Ratio 14.2 (6-22) Glucose 170 H (70-100) mg/dL Calcium 9.4 (8.4-10.2) mg/dL Magnesium 1.8 (1.6-2.3) mg/dL Total Bilirubin 0.6 (0.2-1.3) mg/dL AST 19 (17-59) IU/L ALT 16 (<50) IU/L Alkaline Phosphatase 69 (38-126) U/L Total Creatine Kinase 56 (55-170) U/L Troponin I < 0.012 < 0.012 (0.01-0.034) ng/mL NT-Pro-B Natriuret Pep 1380 H (<125) pg/mL Total Protein 7.9 (6.3-8.2) g/dL Albumin 4.4 (3.5-5.0) g/dL Globulin 3.5 (1.7-4.1) g/dL Albumin/Globulin Ratio 1.3 (1.0-2.8) Lipase 44 (23-300) U/L Imaging Data Chest x-ray: Radiologist's Impression: [address] [address] XRay Report Signed Patient: Claudio Dozier MR#: [id number] : 1965 Acct:[id number] Age/Sex: 58 / M Date of Service: 08/01/24 Loc: ED Accession Number: [id number] Procedure: XR chest 1V Ordering Provider: Cathy Marcelino D.O. PROCEDURE: XR CHEST 1V INDICATIONS: chest pain TECHNIQUE: One view of the chest was acquired. COMPARISON: None. FINDINGS: Surgical changes and devices: Sternotomy. Lungs and pleura: Lungs are clear. No pleural effusions or pneumothorax. Mediastinum: Mediastinal contours appear normal. Heart size is normal. Bones and chest wall: No suspicious bony lesions. Overlying soft tissues appear unremarkable. Healed right rib fractures. IMPRESSION: No acute cardiopulmonary abnormality is seen. Dictated by: Fuad Garcia M.D. on 08/01/2024 at 10:29 Approved by: Fuad Garcia M.D. on 08/01/2024 at 10:29 ECG Data Attestation: I personally reviewed and interpreted this ECG as follows: Prior ECG tracings: not available for review Interpretation: Sinus rhythm rate of 76 AR 168 QRS is 78 QTC of [address] elevation depression noted. EKG 2. Shows sinus rhythm, rate of 66 AR 168 QRS is 76 QTC of 419 less than a mm elevation in lead 3 but not appreciated in 2 or AVF. No other acute ST changes appreciated. MDM Narrative Medical decision making narrative: 58-year-old male with known history of coronary artery disease type 2 1 diabetes, hypertension patient has had recent multiple changes to his medications because he has had some chest discomfort but also dizziness and feeling unwell while on amlodipine was switched to hydralazine until about 24 hours worth stopped that has continued to be hypertensive since. Labs show normal CBC, coags are negative, creatinine 4.57 appears consistent priors from earlier in July and May. Electrolytes are appropriate with a sodium 138 potassium of 4.5 chloride of 106 and CO2 of 22 glucose is 170, calcium is 9.8 with a Mag of 1.8, LFTs are negative. Troponin is less than 0.012. BNP is 1380 although in the setting of stage IV renal disease may be his baseline. Repeat troponins less than 0.012 EKG shows sinus rhythm no acute changes, patient had less than 1 mm change in a single lead on EKG. Chest x-ray shows no acute change. Patient was given 1 dose of nitro sublingual as he was 210 systolic over 93 even after sitting for some time. Patient chest pressure had resolved prior to the nitro sublingual but was still quite hypertensive received a dose she felt a little bit of an increase in symptoms and then improved and he is feeling continuing to be improved here. After discussion patient prefers to return to the hydralazine as he only had 1 or 2 doses total he has follow up in the next 2 weeks with his nephrology team. Discussed consultation with Cardiology and/or nephrology he defers states he will touch base he states he can get a hold of office pretty easily. Discussed we have not totally ruled out any potential cardiac source although no active ACS today and that patient should follow up and if he was having any persistent or recurrent symptoms should return for re-evaluation. Discharge Plan Departure Patient Disposition: Home Clinical Impression: Chest pain Activity Restrictions/Additional Instructions: Please follow-up with your care team at your 2 week appointment. As discussed return to your hydralazine at their prescribed dosage if you are having persistent symptoms I would touch base with your physician for adjustment of your medications. Your blood pressure was quite elevated upon arrival it has been improving here in the department. Please return if you are having new or changing chest pain or pressure, shortness of breath, lightheadedness or passing out, any diaphoresis or sweatiness, swelling of your extremities or other new or concerning changes. Prescriptions: No Action insulin aspart U-100 [Novolog U-100 Insulin aspart] 100 unit/mL solution 20 unit SUBCUT BID lisinopril 40 mg tablet 40 mg PO DAILY Referrals: Chuy Mendez MD [Non-Staff] - Phillip Sousa PA-C [Non-Staff] - Casper Looney MD [Primary Care Provider] - Stand Alone Forms: Patient Portal/API/Survey
[2024-08-01 10:18] LABS: NT-proBNP (BNP-Adult 18+) 1380 pg/mL (<125); Troponin I < 0.012 ng/mL (0.01-0.034)
[2024-08-01] MEDS: NITROGLYCERIN 0.4 MG SL TAB SL (10:43)
--- NOTE | 2024-08-01 11:54 | EKG_ITS ---
[address] [address] Test Date: 2024-08-01 Pat Name: Claudio Dozier Department: Room: Gender: Male Hotel Valet Attendant: LESLY : 1965 Requested By: Order Number: [id number] Reading MD: Josesito Roa Measurements Intervals [place] Rate: 66 P: 28 [place]: 168 QRS: 25 QRSD: 76 T: 51 QT: 400 QTc: 419 Interpretive Statements Normal sinus rhythm Electronically Signed On 08-03-2024 19:03:03 PST by Josesito Roa
[2024-08-01 12:22] LABS: Troponin I < 0.012 ng/mL (0.01-0.034)
== END 2024-08-01 12:50 | disposition home or self-care (01) ==
PROVIDERS: Emergency Provider Emergency Medicine; Family Provider Internal Medicine; PCP Family Medicine
DX: R07.9 Chest pain, unspecified (principal); R42 Dizziness and giddiness
CPT/HCPCS: 36415; 71045; 80053; 82550; 83690; 83735; 83880; 84484; 85025; 85610; 85730; 93005; 99284

== ENCOUNTER → 2024-08-18 12:25 | Outpatient (CLI) | payer OTHER, SELFPAY ==
[2024-08-18 13:22] LABS: BUN Creatinine Ratio 14.9 (6-22); Blood Urea Nitrogen 64 mg/dL (9-20); Carbon Dioxide 21 mmol/L (22-32); Chloride 106 mmol/L (98-107); Estimated Glomerular Filt Rate 15 mL/min (>60); Glucose 148 mg/dL (70-100); HEMOLYSIS < 15 (0-50); Potassium 4.6 mmol/L (3.4-5.1); Sodium 134 mmol/L (137-145)
[2024-08-18 14:57] LABS: Protein (Total) Urine Random 90 mg/dL (0-12); Protein Creatinine Ratio Urine 2.31 GRAM/24H
[2024-08-20 09:36] LABS: Parathyroid Hormone Int 198 pg/mL (15-65)
== END ==
PROVIDERS: Family Provider Internal Medicine; PCP Family Medicine; Referring Provider Student in an Organized Health Care Education/Training Program; Visit Provider Student in an Organized Health Care Education/Training Program
DX: N05.9 Unspecified nephritic syndrome with unspecified morphologic changes (principal); N25.81 Secondary hyperparathyroidism of renal origin; R80.9 Proteinuria, unspecified
CPT/HCPCS: 36415; 80048; 82570; 83970; 84156

== ENCOUNTER → 2024-09-21 07:57 | Outpatient (CLI) | payer OTHER, SELFPAY ==
[2024-09-21 08:26] LABS: Hematocrit 40.9 % (41-53); Hemoglobin 13.4 g/dL (13.5-17.5)
[2024-09-21 08:48] LABS: BUN Creatinine Ratio 14.7 (6-22); Blood Urea Nitrogen 68 mg/dL (9-20); Calcium 8.9 mg/dL (8.4-10.2); Carbon Dioxide 23 mmol/L (22-32); Chloride 106 mmol/L (98-107); Estimated Glomerular Filt Rate 14 mL/min (>60); Glucose 126 mg/dL (70-100); HEMOLYSIS < 15 (0-50); Potassium 4.7 mmol/L (3.4-5.1); Sodium 136 mmol/L (137-145)
[2024-09-21 09:18] LABS: Creatinine Urine Random 81.91 mg/dL
[2024-09-21 09:24] LABS: Protein (Total) Urine Random 395 mg/dL (0-12); Protein Creatinine Ratio Urine 4.82 GRAM/24H
[2024-09-22 10:22] LABS: Parathyroid Hormone Int 233 pg/mL (15-65)
== END ==
LOC: LAB 07:58
PROVIDERS: Family Provider Internal Medicine; PCP Family Medicine; Referring Provider Student in an Organized Health Care Education/Training Program; Visit Provider Student in an Organized Health Care Education/Training Program
DX: N05.9 Unspecified nephritic syndrome with unspecified morphologic changes (principal); D70.9 Neutropenia, unspecified; D63.1 Anemia in chronic kidney disease; N25.81 Secondary hyperparathyroidism of renal origin; R80.9 Proteinuria, unspecified
CPT/HCPCS: 36415; 80048; 82570; 83970; 84156; 85014; 85018

== ENCOUNTER → 2024-10-31 06:58 | Outpatient (CLI) | payer OTHER, SELFPAY ==
[2024-10-31 07:48] LABS: Hematocrit 40.8 % (41-53); Hemoglobin 13.4 g/dL (13.5-17.5)
[2024-10-31 08:08] LABS: Creatinine Urine Random 74.73 mg/dL
[2024-10-31 08:15] LABS: Protein (Total) Urine Random 580 mg/dL (0-12); Protein Creatinine Ratio Urine 7.76 GRAM/24H
[2024-10-31 08:24] LABS: BUN Creatinine Ratio 11.5 (6-22); Blood Urea Nitrogen 52 mg/dL (9-20); Calcium 8.8 mg/dL (8.4-10.2); Carbon Dioxide 22 mmol/L (22-32); Chloride 106 mmol/L (98-107); Estimated Glomerular Filt Rate 14 mL/min (>60); Glucose 150 mg/dL (70-100); HEMOLYSIS < 15 (0-50); Potassium 4.6 mmol/L (3.4-5.1); Sodium 138 mmol/L (137-145)
[2024-11-01 05:18] LABS: Parathyroid Hormone Int 285 pg/mL (15-65)
== END ==
PROVIDERS: Family Provider Internal Medicine; PCP Family Medicine; Referring Provider Student in an Organized Health Care Education/Training Program; Visit Provider Student in an Organized Health Care Education/Training Program
DX: N05.9 Unspecified nephritic syndrome with unspecified morphologic changes (principal); D64.9 Anemia, unspecified; N25.81 Secondary hyperparathyroidism of renal origin; R80.9 Proteinuria, unspecified
CPT/HCPCS: 36415; 80048; 82570; 83970; 84156; 85014; 85018

== ENCOUNTER → 2024-11-26 07:40 | Outpatient (CLI) | payer OTHER, SELFPAY ==
[2024-11-26 08:57] LABS: Hematocrit 42.6 % (41-53)
[2024-11-26 09:12] LABS: BUN Creatinine Ratio 14.6 (6-22); Blood Urea Nitrogen 76 mg/dL (9-20); Calcium 9.5 mg/dL (8.4-10.2); Carbon Dioxide 23 mmol/L (22-32); Chloride 103 mmol/L (98-107); Estimated Glomerular Filt Rate 12 mL/min (>60); Glucose 126 mg/dL (70-100); HEMOLYSIS < 15 (0-50); Potassium 4.2 mmol/L (3.4-5.1); Sodium 137 mmol/L (137-145)
[2024-11-26 09:18] LABS: Creatinine Urine Random 44.33 mg/dL
[2024-11-26 09:22] LABS: Protein (Total) Urine Random 316 mg/dL (0-12); Protein Creatinine Ratio Urine 7.12 GRAM/24H
[2024-11-27 11:08] LABS: Parathyroid Hormone Int 408 pg/mL (15-65)
== END ==
PROVIDERS: Family Provider Internal Medicine; PCP Family Medicine; Referring Provider Student in an Organized Health Care Education/Training Program; Visit Provider Student in an Organized Health Care Education/Training Program
DX: N05.9 Unspecified nephritic syndrome with unspecified morphologic changes (principal); D70.9 Neutropenia, unspecified; D63.1 Anemia in chronic kidney disease; N25.81 Secondary hyperparathyroidism of renal origin; R80.9 Proteinuria, unspecified
CPT/HCPCS: 36415; 80048; 82570; 83970; 84156; 85014; 85018

== ENCOUNTER → 2024-12-20 08:31 | Outpatient (CLI) | payer OTHER, SELFPAY ==
[2024-12-20 09:25] LABS: BUN Creatinine Ratio 16.6 (6-22); Blood Urea Nitrogen 86 mg/dL (9-20); Carbon Dioxide 24 mmol/L (22-32); Chloride 101 mmol/L (98-107); Estimated Glomerular Filt Rate 12 mL/min (>60); Glucose 107 mg/dL (70-100); HEMOLYSIS < 15 (0-50); Potassium 3.8 mmol/L (3.4-5.1); Sodium 135 mmol/L (137-145)
== END ==
PROVIDERS: Family Provider Internal Medicine; PCP Family Medicine; Referring Provider Student in an Organized Health Care Education/Training Program; Visit Provider Student in an Organized Health Care Education/Training Program
DX: N05.9 Unspecified nephritic syndrome with unspecified morphologic changes (principal)
CPT/HCPCS: 36415; 80048

== ENCOUNTER → 2025-01-06 15:24 | Outpatient (CLI) | payer OTHER, SELFPAY | PROVIDERS: Family Provider Internal Medicine; PCP Family Medicine; Referring Provider Student in an Organized Health Care Education/Training Program; Visit Provider Student in an Organized Health Care Education/Training Program | DX: N05.9 Unspecified nephritic syndrome with unspecified morphologic changes (principal); D70.9 Neutropenia, unspecified; D63.1 Anemia in chronic kidney disease; E83.30 Disorder of phosphorus metabolism, unspecified; N25.81 Secondary hyperparathyroidism of renal origin | CPT/HCPCS: 36415 ==

== ENCOUNTER → 2025-01-07 08:11 | Outpatient (CLI) | payer OTHER, SELFPAY ==
[2025-01-07 10:26] LABS: Hematocrit 39.7 % (41-53); Hemoglobin 13.1 g/dL (13.5-17.5); Mean Corpuscular HGB Conc 33.1 % (30-36); Mean Corpuscular Hemoglobin 28.9 PG (26-34); Mean Corpuscular Volume 87.3 fL (80-100); Platelet Count 194 X10^3/uL (150-400); Red Blood Cell Count 4.54 X10^6/uL (4.5-5.9); Red Cell Distribution Width 14.2 % (11.6-14.8); White Blood Cell Count 6.7 X10^3/uL (4.5-11.0)
[2025-01-07 10:49] LABS: BUN Creatinine Ratio 16.1 (6-22); Blood Urea Nitrogen 81 mg/dL (9-20); Calcium 8.9 mg/dL (8.4-10.2); Carbon Dioxide 22 mmol/L (22-32); Chloride 100 mmol/L (98-107); Estimated Glomerular Filt Rate 13 mL/min (>60); Glucose 136 mg/dL (70-99); HEMOLYSIS < 15 (0-50); Phosphorous 5.6 mg/dL (2.5-4.5); Potassium 4.7 mmol/L (3.4-5.1); Sodium 132 mmol/L (137-145)
[2025-01-08 09:08] LABS: Parathyroid Hormone Int 372 pg/mL (15-65)
== END ==
LOC: LAB 08:12
PROVIDERS: Family Provider Internal Medicine; PCP Family Medicine; Referring Provider Student in an Organized Health Care Education/Training Program; Visit Provider Student in an Organized Health Care Education/Training Program
DX: N05.9 Unspecified nephritic syndrome with unspecified morphologic changes (principal); D70.9 Neutropenia, unspecified; D63.1 Anemia in chronic kidney disease; E83.30 Disorder of phosphorus metabolism, unspecified; N25.81 Secondary hyperparathyroidism of renal origin
CPT/HCPCS: 36415; 80048; 83970; 84100; 85027

== ENCOUNTER → 2025-02-07 14:12 | Outpatient (CLI) | payer OTHER, SELFPAY ==
[2025-02-07 14:54] LABS: Hematocrit 41.2 % (41-53); Hemoglobin 13.6 g/dL (13.5-17.5)
[2025-02-07 15:27] LABS: BUN Creatinine Ratio 13.9 (6-22); Blood Urea Nitrogen 75 mg/dL (9-20); Calcium 8.9 mg/dL (8.4-10.2); Carbon Dioxide 21 mmol/L (22-32); Chloride 102 mmol/L (98-107); Estimated Glomerular Filt Rate 12 mL/min (>60); Glucose 126 mg/dL (70-99); HEMOLYSIS < 15 (0-50); Sodium 134 mmol/L (137-145)
[2025-02-07 15:33] LABS: Creatinine Urine Random 46.81 mg/dL
[2025-02-07 15:48] LABS: Protein (Total) Urine Random 333 mg/dL (0-12); Protein Creatinine Ratio Urine 7.11 GRAM/24H
[2025-02-09 07:09] LABS: Parathyroid Hormone Int 478 pg/mL (15-65)
== END ==
PROVIDERS: Family Provider Internal Medicine; PCP Family Medicine; Referring Provider Student in an Organized Health Care Education/Training Program; Visit Provider Student in an Organized Health Care Education/Training Program
DX: N05.9 Unspecified nephritic syndrome with unspecified morphologic changes (principal); D70.9 Neutropenia, unspecified; D63.1 Anemia in chronic kidney disease; R80.9 Proteinuria, unspecified; N25.81 Secondary hyperparathyroidism of renal origin
CPT/HCPCS: 36415; 80048; 82570; 83970; 84156; 85014; 85018

== ENCOUNTER → 2025-04-03 07:29 | Outpatient (CLI) | payer OTHER, SELFPAY ==
[2025-04-03 08:02] LABS: Appearance Urine UA CLEAR; Bilirubin Urine UA NEGATIVE (NEGATIVE); Color Urine UA YELLOW; Glucose Urine UA NEGATIVE (Negative); Ketones Urine UA NEGATIVE (NEGATIVE); Leukocyte Esterase Urine UA NEGATIVE (NEGATIVE); Nitrite Urine UA NEGATIVE (Negative); Occult Blood Urine UA NEGATIVE (Negative); Protein Urine UA 1+ (Negative); Specific Gravity Urine UA 1.010 (1.000-1.035); Urobilinogen Urine UA 0.2 E.U./dL (0.2); pH Urine UA 5.5 (4.5-8.0)
[2025-04-03 08:09] LABS: Culture Indicated Urine Cult Not Indicated
[2025-04-03 08:14] LABS: Add Manual Diff / Slide Review NO; Hematocrit 37.5 % (41-53); Hemoglobin 12.1 g/dL (13.5-17.5); Lymphocytes Absolute Auto 500 /uL (1100-4500); Mean Corpuscular HGB Conc 32.3 % (30-36); Mean Corpuscular Hemoglobin 29.1 PG (26-34); Mean Corpuscular Volume 90.4 fL (80-100); Platelet Count 193 X10^3/uL (150-400)
[2025-04-03 08:20] LABS: Protein (Total) Urine Random 59 mg/dL (0-12); Protein Creatinine Ratio Urine 0.90 GRAM/24H
[2025-04-03 08:34] LABS: Alanine Aminotransferase 11 IU/L (<50); Albumin 3.6 g/dL (3.5-5.0); Albumin Globulin Ratio 1.6 (1.0-2.8); Alkaline Phosphatase 67 U/L (38-126); Blood Urea Nitrogen 32 mg/dL (9-20); Calcium 9.1 mg/dL (8.4-10.2); Carbon Dioxide 25 mmol/L (22-32); Chloride 105 mmol/L (98-107); Estimated Glomerular Filt Rate 42 mL/min (>60); Globulin 2.2 g/dL (1.7-4.1); Glucose 119 mg/dL (70-99); HEMOLYSIS < 15 (0-50); Magnesium 1.9 mg/dL (1.6-2.3); Phosphorous 2.9 mg/dL (2.5-4.5); Potassium 4.8 mmol/L (3.4-5.1); Sodium 135 mmol/L (137-145); Total Protein 5.8 g/dL (6.3-8.2)
== END ==
PROVIDERS: Family Provider Internal Medicine; PCP Family Medicine; Referring Provider Internal Medicine; Visit Provider Internal Medicine
DX: E83.40 Disorders of magnesium metabolism, unspecified (principal); T86.90 Unspecified complication of unspecified transplanted organ and tissue; Z48.298 Encounter for aftercare following other organ transplant; Z94.0 Kidney transplant status
CPT/HCPCS: 36415; 80053; 80197; 81001; 82570; 83735; 84100; 84156; 85025

== ENCOUNTER → 2025-04-18 08:08 | Outpatient (CLI) | payer OTHER, SELFPAY ==
[2025-04-18 09:22] LABS: Add Manual Diff / Slide Review NO; Hematocrit 37.5 % (41-53); Hemoglobin 12.5 g/dL (13.5-17.5); Lymphocytes Absolute Auto 700 /uL (1100-4500); Mean Corpuscular HGB Conc 33.2 % (30-36); Mean Corpuscular Hemoglobin 29.9 PG (26-34); Mean Corpuscular Volume 90.0 fL (80-100); Platelet Count 165 X10^3/uL (150-400)
[2025-04-18 09:50] LABS: Alanine Aminotransferase 17 IU/L (<50); Albumin 3.5 g/dL (3.5-5.0); Albumin Globulin Ratio 1.5 (1.0-2.8); Alkaline Phosphatase 75 U/L (38-126); Blood Urea Nitrogen 40 mg/dL (9-20); Calcium 9.2 mg/dL (8.4-10.2); Carbon Dioxide 28 mmol/L (22-32); Chloride 103 mmol/L (98-107); Estimated Glomerular Filt Rate 35 mL/min (>60); Globulin 2.3 g/dL (1.7-4.1); Glucose 136 mg/dL (70-99); HEMOLYSIS < 15 (0-50); Magnesium 1.8 mg/dL (1.6-2.3); Phosphorous 3.4 mg/dL (2.5-4.5); Potassium 4.9 mmol/L (3.4-5.1); Sodium 135 mmol/L (137-145); Total Protein 5.8 g/dL (6.3-8.2)
[2025-04-18 12:15] LABS: Appearance Urine UA CLEAR; Bilirubin Urine UA NEGATIVE (NEGATIVE); Color Urine UA YELLOW; Glucose Urine UA NEGATIVE (Negative); Ketones Urine UA NEGATIVE (NEGATIVE); Leukocyte Esterase Urine UA NEGATIVE (NEGATIVE); Nitrite Urine UA NEGATIVE (Negative); Occult Blood Urine UA NEGATIVE (Negative); Protein Urine UA 2+ (Negative); Specific Gravity Urine UA 1.015 (1.000-1.035); Urobilinogen Urine UA 0.2 E.U./dL (0.2); pH Urine UA 6.0 (4.5-8.0)
[2025-04-18 12:23] LABS: Culture Indicated Urine Cult Not Indicated
[2025-04-18 15:52] LABS: Protein (Total) Urine Random 78 mg/dL (0-12); Protein Creatinine Ratio Urine 0.73 GRAM/24H
== END ==
PROVIDERS: Family Provider Internal Medicine; PCP Family Medicine; Referring Provider Family Medicine; Visit Provider Internal Medicine
DX: E83.40 Disorders of magnesium metabolism, unspecified (principal); N39.0 Urinary tract infection, site not specified; T86.90 Unspecified complication of unspecified transplanted organ and tissue; Z48.298 Encounter for aftercare following other organ transplant; Z94.0 Kidney transplant status
CPT/HCPCS: 36415; 80053; 80197; 81001; 82570; 83735; 84100; 84156; 85025

== ENCOUNTER → 2025-04-25 08:03 | Outpatient (CLI) | payer OTHER, SELFPAY ==
[2025-04-25 08:49] LABS: Add Manual Diff / Slide Review NO; Hematocrit 39.3 % (41-53); Hemoglobin 12.8 g/dL (13.5-17.5); Lymphocytes Absolute Auto 600 /uL (1100-4500); Mean Corpuscular HGB Conc 32.6 % (30-36); Mean Corpuscular Hemoglobin 29.2 PG (26-34); Mean Corpuscular Volume 89.5 fL (80-100); Platelet Count 161 X10^3/uL (150-400)
[2025-04-25 09:34] LABS: Alanine Aminotransferase 12 IU/L (<50); Albumin 3.7 g/dL (3.5-5.0); Albumin Globulin Ratio 1.5 (1.0-2.8); Alkaline Phosphatase 70 U/L (38-126); Blood Urea Nitrogen 37 mg/dL (9-20); Calcium 9.5 mg/dL (8.4-10.2); Carbon Dioxide 26 mmol/L (22-32); Chloride 101 mmol/L (98-107); Estimated Glomerular Filt Rate 36 mL/min (>60); Globulin 2.4 g/dL (1.7-4.1); Glucose 106 mg/dL (70-99); HEMOLYSIS < 15 (0-50); Magnesium 1.8 mg/dL (1.6-2.3); Phosphorous 3.5 mg/dL (2.5-4.5); Potassium 4.5 mmol/L (3.4-5.1); Sodium 134 mmol/L (137-145); Total Protein 6.1 g/dL (6.3-8.2)
[2025-04-25 09:54] LABS: Appearance Urine UA CLEAR; Bilirubin Urine UA NEGATIVE (NEGATIVE); Color Urine UA YELLOW; Glucose Urine UA NEGATIVE (Negative); Ketones Urine UA NEGATIVE (NEGATIVE); Leukocyte Esterase Urine UA NEGATIVE (NEGATIVE); Nitrite Urine UA NEGATIVE (Negative); Occult Blood Urine UA NEGATIVE (Negative); Protein Urine UA 2+ (Negative); Specific Gravity Urine UA 1.020 (1.000-1.035); Urobilinogen Urine UA 1.0 E.U./dL (0.2); pH Urine UA 6.0 (4.5-8.0)
[2025-04-25 10:09] LABS: Protein (Total) Urine Random 130 mg/dL (0-12); Protein Creatinine Ratio Urine 0.94 GRAM/24H
[2025-04-25 10:19] LABS: Culture Indicated Urine Cult Not Indicated
== END ==
PROVIDERS: Family Provider Internal Medicine; Referring Provider Internal Medicine; Visit Provider Internal Medicine
DX: E83.40 Disorders of magnesium metabolism, unspecified (principal); N39.0 Urinary tract infection, site not specified; T86.90 Unspecified complication of unspecified transplanted organ and tissue; Z48.298 Encounter for aftercare following other organ transplant; Z94.0 Kidney transplant status
CPT/HCPCS: 36415; 80053; 80197; 81001; 82570; 83735; 84100; 84156; 85025

== ENCOUNTER → 2025-06-05 06:59 | Outpatient (CLI) | payer OTHER, SELFPAY ==
[2025-06-05 08:17] LABS: Appearance Urine UA CLEAR; Bilirubin Urine UA NEGATIVE (NEGATIVE); Color Urine UA YELLOW; Glucose Urine UA NEGATIVE (Negative); Ketones Urine UA NEGATIVE (NEGATIVE); Leukocyte Esterase Urine UA NEGATIVE (NEGATIVE); Nitrite Urine UA NEGATIVE (Negative); Occult Blood Urine UA NEGATIVE (Negative); Protein Urine UA 3+ (Negative); Specific Gravity Urine UA 1.015 (1.000-1.035); Urobilinogen Urine UA 0.2 E.U./dL (0.2); pH Urine UA 6.5 (4.5-8.0)
[2025-06-05 08:45] LABS: Culture Indicated Urine Cult Not Indicated
[2025-06-05 08:58] LABS: Alanine Aminotransferase 12 IU/L (<50); Albumin 3.5 g/dL (3.5-5.0); Albumin Globulin Ratio 1.5 (1.0-2.8); Alkaline Phosphatase 63 U/L (38-126); Blood Urea Nitrogen 38 mg/dL (9-20); Calcium 9.2 mg/dL (8.4-10.2); Carbon Dioxide 28 mmol/L (22-32); Chloride 103 mmol/L (98-107); Estimated Glomerular Filt Rate 41 mL/min (>60); Globulin 2.4 g/dL (1.7-4.1); Glucose 72 mg/dL (70-99); HEMOLYSIS < 15 (0-50); Magnesium 1.7 mg/dL (1.6-2.3); Phosphorous 3.8 mg/dL (2.5-4.5); Potassium 4.0 mmol/L (3.4-5.1); Sodium 136 mmol/L (137-145); Total Protein 5.9 g/dL (6.3-8.2)
[2025-06-05 09:35] LABS: Protein (Total) Urine Random 296 mg/dL (0-12); Protein Creatinine Ratio Urine 4.04 GRAM/24H
[2025-06-05 09:53] LABS: Hematocrit 39.2 % (41-53); Hemoglobin 12.9 g/dL (13.5-17.5); Mean Corpuscular HGB Conc 32.9 % (30-36); Mean Corpuscular Hemoglobin 28.8 PG (26-34); Mean Corpuscular Volume 87.5 fL (80-100); Platelet Count 145 X10^3/uL (150-400)
[2025-06-05 09:54] LABS: Add Manual Diff / Slide Review YES
[2025-06-05 12:22] LABS: Band Neutrophils Percent 8.0 % (3-7); Eosinophils Percent Manual 2.0 % (2-4); Lymphocytes Percent Manual 39.0 % (25-45); Monocytes Percent Manual 2.0 % (2-11); Neutrophils Absolute Manual 1425 /uL (3000-5900); Segmented Neutrophils Percent 49.0 % (38-70); Total Cells Counted 100
[2025-06-05 12:23] LABS: Anisocytosis 1+
== END ==
PROVIDERS: Family Provider Internal Medicine; PCP Family Medicine; Referring Provider Internal Medicine; Visit Provider Internal Medicine
DX: E83.40 Disorders of magnesium metabolism, unspecified (principal); N39.0 Urinary tract infection, site not specified; Z94.0 Kidney transplant status; Z48.298 Encounter for aftercare following other organ transplant; T86.90 Unspecified complication of unspecified transplanted organ and tissue
CPT/HCPCS: 36415; 80053; 80197; 81001; 82570; 83735; 84100; 84156; 85007; 85025

== ENCOUNTER → 2025-06-19 06:59 | Outpatient (CLI) | payer OTHER, SELFPAY ==
[2025-06-19 07:48] LABS: Appearance Urine UA CLEAR; Bilirubin Urine UA NEGATIVE (NEGATIVE); Color Urine UA YELLOW; Glucose Urine UA NEGATIVE (Negative); Ketones Urine UA NEGATIVE (NEGATIVE); Leukocyte Esterase Urine UA NEGATIVE (NEGATIVE); Nitrite Urine UA NEGATIVE (Negative); Occult Blood Urine UA NEGATIVE (Negative); Protein Urine UA 3+ (Negative); Specific Gravity Urine UA 1.020 (1.000-1.035); Urobilinogen Urine UA 0.2 E.U./dL (0.2); pH Urine UA 6.0 (4.5-8.0)
[2025-06-19 07:53] LABS: Protein (Total) Urine Random 400 mg/dL (0-12); Protein Creatinine Ratio Urine 3.64 GRAM/24H
[2025-06-19 07:56] LABS: Add Manual Diff / Slide Review NO; Hematocrit 40.7 % (41-53); Hemoglobin 13.4 g/dL (13.5-17.5); Lymphocytes Absolute Auto 900 /uL (1100-4500); Mean Corpuscular HGB Conc 32.9 % (30-36); Mean Corpuscular Hemoglobin 28.5 PG (26-34); Mean Corpuscular Volume 86.5 fL (80-100); Platelet Count 205 X10^3/uL (150-400)
[2025-06-19 07:57] LABS: Culture Indicated Urine Cult Not Indicated
[2025-06-19 09:41] LABS: Alanine Aminotransferase 12 IU/L (<50); Albumin 3.7 g/dL (3.5-5.0); Albumin Globulin Ratio 1.4 (1.0-2.8); Alkaline Phosphatase 79 U/L (38-126); Blood Urea Nitrogen 35 mg/dL (9-20); Calcium 9.0 mg/dL (8.4-10.2); Carbon Dioxide 25 mmol/L (22-32); Chloride 104 mmol/L (98-107); Estimated Glomerular Filt Rate 47 mL/min (>60); Globulin 2.7 g/dL (1.7-4.1); Glucose 87 mg/dL (70-99); HEMOLYSIS < 15 (0-50); Magnesium 2.0 mg/dL (1.6-2.3); Phosphorous 3.9 mg/dL (2.5-4.5); Potassium 4.2 mmol/L (3.4-5.1); Sodium 138 mmol/L (137-145); Total Protein 6.4 g/dL (6.3-8.2)
== END ==
PROVIDERS: Family Provider Internal Medicine; PCP Family Medicine; Referring Provider Student in an Organized Health Care Education/Training Program; Visit Provider Internal Medicine
DX: E83.40 Disorders of magnesium metabolism, unspecified (principal); N39.0 Urinary tract infection, site not specified; T86.90 Unspecified complication of unspecified transplanted organ and tissue; Z48.298 Encounter for aftercare following other organ transplant; Z94.0 Kidney transplant status
CPT/HCPCS: 36415; 80053; 80197; 81001; 82570; 83735; 84100; 84156; 85025

== ENCOUNTER → 2025-07-10 07:13 | Outpatient (CLI) | payer OTHER, SELFPAY ==
[2025-07-10 08:24] LABS: Add Manual Diff / Slide Review NO; Hematocrit 41.3 % (41-53); Hemoglobin 13.6 g/dL (13.5-17.5); Lymphocytes Absolute Auto 700 /uL (1100-4500); Mean Corpuscular HGB Conc 32.9 % (30-36); Mean Corpuscular Hemoglobin 28.3 PG (26-34); Mean Corpuscular Volume 86.0 fL (80-100); Platelet Count 161 X10^3/uL (150-400)
[2025-07-10 08:49] LABS: Alanine Aminotransferase 12 IU/L (<50); Albumin 3.6 g/dL (3.5-5.0); Albumin Globulin Ratio 1.4 (1.0-2.8); Alkaline Phosphatase 76 U/L (38-126); Blood Urea Nitrogen 38 mg/dL (9-20); Calcium 9.2 mg/dL (8.4-10.2); Carbon Dioxide 26 mmol/L (22-32); Chloride 104 mmol/L (98-107); Estimated Glomerular Filt Rate 42 mL/min (>60); Globulin 2.6 g/dL (1.7-4.1); Glucose 115 mg/dL (70-99); HEMOLYSIS < 15 (0-50); Magnesium 1.9 mg/dL (1.6-2.3); Phosphorous 3.4 mg/dL (2.5-4.5); Potassium 4.6 mmol/L (3.4-5.1); Sodium 136 mmol/L (137-145); Total Protein 6.2 g/dL (6.3-8.2)
[2025-07-10 09:28] LABS: Appearance Urine UA CLEAR; Bilirubin Urine UA NEGATIVE (NEGATIVE); Color Urine UA YELLOW; Glucose Urine UA NEGATIVE (Negative); Ketones Urine UA NEGATIVE (NEGATIVE); Leukocyte Esterase Urine UA NEGATIVE (NEGATIVE); Nitrite Urine UA NEGATIVE (Negative); Occult Blood Urine UA TRACE-INTACT (Negative); Protein Urine UA 2+ (Negative); Specific Gravity Urine UA 1.025 (1.000-1.035); Urobilinogen Urine UA 0.2 E.U./dL (0.2); pH Urine UA 5.5 (4.5-8.0)
[2025-07-10 09:29] LABS: Culture Indicated Urine Cult Not Indicated
[2025-07-10 09:54] LABS: Protein (Total) Urine Random 284 mg/dL (0-12); Protein Creatinine Ratio Urine 3.13 GRAM/24H
== END ==
PROVIDERS: Family Provider Internal Medicine; PCP Family Medicine; Referring Provider Internal Medicine; Visit Provider Internal Medicine
DX: E83.40 Disorders of magnesium metabolism, unspecified (principal); N39.0 Urinary tract infection, site not specified; T86.90 Unspecified complication of unspecified transplanted organ and tissue; Z48.288 Encounter for aftercare following multiple organ transplant; Z94.0 Kidney transplant status
CPT/HCPCS: 36415; 80053; 80197; 81001; 82570; 83735; 84100; 84156; 85025

== ENCOUNTER → 2025-07-24 07:07 | Outpatient (CLI) | payer OTHER, SELFPAY ==
[2025-07-24 07:34] LABS: Appearance Urine UA CLEAR; Bilirubin Urine UA NEGATIVE (NEGATIVE); Color Urine UA YELLOW; Glucose Urine UA NEGATIVE (Negative); Ketones Urine UA NEGATIVE (NEGATIVE); Leukocyte Esterase Urine UA NEGATIVE (NEGATIVE); Nitrite Urine UA NEGATIVE (Negative); Occult Blood Urine UA NEGATIVE (Negative); Protein Urine UA 2+ (Negative); Specific Gravity Urine UA 1.025 (1.000-1.035); Urobilinogen Urine UA 0.2 E.U./dL (0.2); pH Urine UA 6.0 (4.5-8.0)
[2025-07-24 07:36] LABS: Culture Indicated Urine Cult Not Indicated
[2025-07-24 07:40] LABS: Add Manual Diff / Slide Review NO; Hematocrit 42.7 % (41-53); Hemoglobin 14.1 g/dL (13.5-17.5); Lymphocytes Absolute Auto 900 /uL (1100-4500); Mean Corpuscular HGB Conc 32.9 % (30-36); Mean Corpuscular Hemoglobin 28.1 PG (26-34); Mean Corpuscular Volume 85.2 fL (80-100); Platelet Count 186 X10^3/uL (150-400)
[2025-07-24 07:56] LABS: Alanine Aminotransferase 15 IU/L (<50); Albumin 3.9 g/dL (3.5-5.0); Albumin Globulin Ratio 1.4 (1.0-2.8); Alkaline Phosphatase 84 U/L (38-126); Blood Urea Nitrogen 34 mg/dL (9-20); Calcium 9.3 mg/dL (8.4-10.2); Carbon Dioxide 28 mmol/L (22-32); Chloride 102 mmol/L (98-107); Estimated Glomerular Filt Rate 41 mL/min (>60); Globulin 2.7 g/dL (1.7-4.1); Glucose 181 mg/dL (70-99); HEMOLYSIS < 15 (0-50); Magnesium 1.9 mg/dL (1.6-2.3); Phosphorous 3.8 mg/dL (2.5-4.5); Potassium 4.5 mmol/L (3.4-5.1); Protein (Total) Urine Random 190 mg/dL (0-12); Protein Creatinine Ratio Urine 1.60 GRAM/24H; Sodium 138 mmol/L (137-145); Total Protein 6.6 g/dL (6.3-8.2)
== END ==
PROVIDERS: Family Provider Internal Medicine; PCP Family Medicine; Referring Provider Family Medicine; Visit Provider Internal Medicine
DX: E83.40 Disorders of magnesium metabolism, unspecified (principal); N39.0 Urinary tract infection, site not specified; T86.90 Unspecified complication of unspecified transplanted organ and tissue; Z48.298 Encounter for aftercare following other organ transplant; Z94.0 Kidney transplant status
CPT/HCPCS: 36415; 80053; 80197; 81001; 82570; 83735; 84100; 84156; 85025

== ENCOUNTER → 2025-08-07 07:07 | Outpatient (CLI) | payer OTHER, SELFPAY ==
[2025-08-07 07:34] LABS: Add Manual Diff / Slide Review NO; Hematocrit 42.3 % (41-53); Hemoglobin 13.8 g/dL (13.5-17.5); Lymphocytes Absolute Auto 800 /uL (1100-4500); Mean Corpuscular HGB Conc 32.7 % (30-36); Mean Corpuscular Hemoglobin 27.4 PG (26-34); Mean Corpuscular Volume 83.8 fL (80-100); Platelet Count 183 X10^3/uL (150-400)
[2025-08-07 07:36] LABS: Appearance Urine UA CLEAR; Bilirubin Urine UA NEGATIVE (NEGATIVE); Color Urine UA YELLOW; Glucose Urine UA NEGATIVE (Negative); Ketones Urine UA NEGATIVE (NEGATIVE); Leukocyte Esterase Urine UA NEGATIVE (NEGATIVE); Nitrite Urine UA NEGATIVE (Negative); Occult Blood Urine UA NEGATIVE (Negative); Protein Urine UA 2+ (Negative); Specific Gravity Urine UA 1.025 (1.000-1.035); Urobilinogen Urine UA 0.2 E.U./dL (0.2); pH Urine UA 5.5 (4.5-8.0)
[2025-08-07 07:48] LABS: Culture Indicated Urine Cult Not Indicated
[2025-08-07 07:55] LABS: Protein (Total) Urine Random 153 mg/dL (0-12); Protein Creatinine Ratio Urine 1.22 GRAM/24H
[2025-08-07 07:56] LABS: Alanine Aminotransferase 14 IU/L (<50); Albumin 3.8 g/dL (3.5-5.0); Albumin Globulin Ratio 1.5 (1.0-2.8); Alkaline Phosphatase 80 U/L (38-126); Blood Urea Nitrogen 39 mg/dL (9-20); Calcium 9.3 mg/dL (8.4-10.2); Carbon Dioxide 24 mmol/L (22-32); Chloride 106 mmol/L (98-107); Estimated Glomerular Filt Rate 41 mL/min (>60); Globulin 2.6 g/dL (1.7-4.1); Glucose 111 mg/dL (70-99); HEMOLYSIS < 15 (0-50); Magnesium 1.8 mg/dL (1.6-2.3); Phosphorous 3.6 mg/dL (2.5-4.5); Potassium 4.1 mmol/L (3.4-5.1); Sodium 138 mmol/L (137-145); Total Protein 6.4 g/dL (6.3-8.2)
== END ==
PROVIDERS: Family Provider Internal Medicine; PCP Family Medicine; Referring Provider Family Medicine; Visit Provider Student in an Organized Health Care Education/Training Program
DX: Z48.298 Encounter for aftercare following other organ transplant (principal); Z94.0 Kidney transplant status; E83.40 Disorders of magnesium metabolism, unspecified; T86.90 Unspecified complication of unspecified transplanted organ and tissue
CPT/HCPCS: 36415; 80053; 80197; 81001; 82570; 83735; 84100; 84156; 85025

== ENCOUNTER → 2025-08-21 07:17 | Outpatient (CLI) | payer OTHER, SELFPAY ==
[2025-08-21 07:46] LABS: Appearance Urine UA CLEAR; Bilirubin Urine UA NEGATIVE (NEGATIVE); Color Urine UA YELLOW; Glucose Urine UA NEGATIVE (Negative); Ketones Urine UA NEGATIVE (NEGATIVE); Leukocyte Esterase Urine UA NEGATIVE (NEGATIVE); Nitrite Urine UA NEGATIVE (Negative); Occult Blood Urine UA NEGATIVE (Negative); Protein Urine UA 2+ (Negative); Specific Gravity Urine UA 1.020 (1.000-1.035); Urobilinogen Urine UA 0.2 E.U./dL (0.2); pH Urine UA 6.0 (4.5-8.0)
[2025-08-21 07:53] LABS: Culture Indicated Urine Cult Not Indicated
[2025-08-21 08:03] LABS: Protein (Total) Urine Random 144 mg/dL (0-12); Protein Creatinine Ratio Urine 1.27 GRAM/24H
[2025-08-21 08:53] LABS: Add Manual Diff / Slide Review NO; Hematocrit 41.9 % (41-53); Hemoglobin 13.9 g/dL (13.5-17.5); Lymphocytes Absolute Auto 1200 /uL (1100-4500); Mean Corpuscular HGB Conc 33.2 % (30-36); Mean Corpuscular Hemoglobin 27.9 PG (26-34); Mean Corpuscular Volume 83.9 fL (80-100); Platelet Count 203 X10^3/uL (150-400)
[2025-08-21 09:25] LABS: Alanine Aminotransferase 16 IU/L (<50); Albumin 4.0 g/dL (3.5-5.0); Albumin Globulin Ratio 1.5 (1.0-2.8); Alkaline Phosphatase 86 U/L (38-126); Blood Urea Nitrogen 38 mg/dL (9-20); Calcium 9.6 mg/dL (8.4-10.2); Carbon Dioxide 27 mmol/L (22-32); Chloride 104 mmol/L (98-107); Estimated Glomerular Filt Rate 40 mL/min (>60); Globulin 2.7 g/dL (1.7-4.1); Glucose 108 mg/dL (70-99); HEMOLYSIS < 15 (0-50); Magnesium 2.0 mg/dL (1.6-2.3); Phosphorous 3.0 mg/dL (2.5-4.5); Potassium 4.5 mmol/L (3.4-5.1); Sodium 139 mmol/L (137-145); Total Protein 6.7 g/dL (6.3-8.2)
== END ==
PROVIDERS: Family Provider Internal Medicine; PCP Family Medicine; Referring Provider Student in an Organized Health Care Education/Training Program; Visit Provider Internal Medicine
DX: E83.40 Disorders of magnesium metabolism, unspecified (principal); N39.0 Urinary tract infection, site not specified; T86.90 Unspecified complication of unspecified transplanted organ and tissue; Z48.298 Encounter for aftercare following other organ transplant; Z94.0 Kidney transplant status
CPT/HCPCS: 36415; 80053; 80197; 81001; 82570; 83735; 84100; 84156; 85025

== ENCOUNTER → 2025-09-02 07:49 | Outpatient (CLI) | payer OTHER, SELFPAY ==
[2025-09-02 08:42] LABS: Add Manual Diff / Slide Review NO; Hematocrit 42.5 % (41-53); Hemoglobin 13.9 g/dL (13.5-17.5); Lymphocytes Absolute Auto 1000 /uL (1100-4500); Mean Corpuscular HGB Conc 32.8 % (30-36); Mean Corpuscular Hemoglobin 27.6 PG (26-34); Mean Corpuscular Volume 84.2 fL (80-100); Platelet Count 199 X10^3/uL (150-400)
[2025-09-02 08:47] LABS: Appearance Urine UA CLEAR; Bilirubin Urine UA NEGATIVE (NEGATIVE); Color Urine UA YELLOW; Glucose Urine UA NEGATIVE (Negative); Ketones Urine UA NEGATIVE (NEGATIVE); Leukocyte Esterase Urine UA NEGATIVE (NEGATIVE); Nitrite Urine UA NEGATIVE (Negative); Occult Blood Urine UA NEGATIVE (Negative); Protein Urine UA 1+ (Negative); Specific Gravity Urine UA 1.015 (1.000-1.035); Urobilinogen Urine UA 0.2 E.U./dL (0.2); pH Urine UA 5.5 (4.5-8.0)
[2025-09-02 09:10] LABS: Culture Indicated Urine Cult Not Indicated
[2025-09-02 09:13] LABS: Alanine Aminotransferase 16 IU/L (<50); Albumin 4.0 g/dL (3.5-5.0); Albumin Globulin Ratio 1.5 (1.0-2.8); Alkaline Phosphatase 86 U/L (38-126); Blood Urea Nitrogen 42 mg/dL (9-20); Calcium 9.3 mg/dL (8.4-10.2); Carbon Dioxide 26 mmol/L (22-32); Chloride 102 mmol/L (98-107); Estimated Glomerular Filt Rate 43 mL/min (>60); Globulin 2.7 g/dL (1.7-4.1); Glucose 117 mg/dL (70-99); HEMOLYSIS < 15 (0-50); Magnesium 2.0 mg/dL (1.6-2.3); Phosphorous 3.8 mg/dL (2.5-4.5); Potassium 4.1 mmol/L (3.4-5.1); Sodium 136 mmol/L (137-145); Total Protein 6.7 g/dL (6.3-8.2)
[2025-09-02 09:14] LABS: Protein (Total) Urine Random 86 mg/dL (0-12); Protein Creatinine Ratio Urine 1.01 GRAM/24H
== END ==
PROVIDERS: Family Provider Internal Medicine; PCP Family Medicine; Referring Provider Internal Medicine; Visit Provider Internal Medicine
DX: Z48.298 Encounter for aftercare following other organ transplant (principal); E83.40 Disorders of magnesium metabolism, unspecified; T86.90 Unspecified complication of unspecified transplanted organ and tissue; N39.0 Urinary tract infection, site not specified; Z94.0 Kidney transplant status
CPT/HCPCS: 36415; 80053; 80197; 81001; 82570; 83735; 84100; 84156; 85025